=== PATIENT | female | born 1975 | race African-American/Black ===

== ENCOUNTER 2017-01-20 00:53 | Emergency (ER) | payer OTHER ==
--- NOTE | 2017-01-20 01:29 | PDOC ---
History of Present Illness - General History Source: Patient Exam Limitations: No Limitations - History of Present Illness Travel History: No Initial Comments: 01/20/17 02:25 41-year-old female without any medical problems presents to the emergency department complaining of right upper quadrant discomfort described as 4/10 dull nonradiating intermittent discomfort. Pain is exacerbated after eatting and no alleviating factors. She denies fever, chills, nausea/vomiting, chest pain, shortness of breath, flank pains, urinary symptoms. Timing/Duration: reports: intermittent Quality: reports: burning Abdominal Pain Onset Location: reports: RUQ, epigastric <Dougie Regan - Last Filed: 01/20/17 03:40> <María Frederick - Last Filed: 01/22/17 07:33> - General Chief Complaint: Chest Pain Stated Complaint: PAIN Time Seen by Provider: 01/20/17 01:05 Past History - Past Medical History Asthma: Yes HTN: Yes Psychiatric Problems: Yes (bipolar) - Immunization History Immunization Up to Date: Yes - Psycho/Social/Smoking Cessation Hx Anxiety: No Suicidal Ideation: No Smoking Status: No Smoking History: Never smoked Have you smoked in the past 12 months: No Number of Cigarettes Smoked Daily: 0 Information on smoking cessation initiated: No Hx Alcohol Use: No Drug/Substance Use Hx: No <Dougie Regan - Last Filed: 01/20/17 03:40> <María Frederick - Last Filed: 01/22/17 07:33> - Past Medical History Allergies/Adverse Reactions: Allergies Allergy/AdvReac Type Severity Reaction Status Date / Time latex Allergy Mild Hives Verified 01/20/17 01:07 nuts Allergy Severe Difficulty Uncoded 01/20/17 01:07 Breathing bananas Allergy Mild Itching Uncoded 01/20/17 01:07 Home Medications: Ambulatory Orders Aripiprazole [Abilify] 5 mg PO DAILY 01/20/17 Divalproex [Depakote -] 500 mg PO DAILY 01/20/17 Lisinopril 0 mg PO DAILY 01/20/17 Ritalin 15 mg PO DAILY 01/20/17 Review of Systems - Review of Systems Able to Perform ROS?: Yes Comments:: 01/20/17 02:27 CONSTITUTIONAL: Absent: fever, chills, diaphoresis, generalized weakness, malaise, loss of appetite HEENT: Absent: rhinorrhea, nasal congestion, throat pain, throat swelling, difficulty swallowing, mouth swelling, ear pain, eye pain, visual Changes CARDIOVASCULAR: Absent: chest pain, loss of consciousness, palpitations, irregular heart rate, peripheral edema RESPIRATORY: Absent: cough, shortness of breath, dyspnea with exertion, orthopnea, wheezing, stridor, hemoptysis GASTROINTESTINAL: +epigastric/RUQ pain Absent: abdominal distension, nausea, vomiting, diarrhea, constipation, melena , hematochezia GENITOURINARY: Absent: dysuria, frequency, urgency, hesitancy, hematuria, flank pain, genital pain MUSCULOSKELETAL: Absent: myalgia, arthralgia, joint swelling SKIN: Absent: rash, itching, pallor HEMATOLOGIC/IMMUNOLOGIC: Absent: easy bleeding, easy bruising, lymphadenopathy, frequent infections ENDOCRINE: Absent: unexplained weight gain, unexplained weight loss, heat intolerance, cold intolerance NEUROLOGIC: Absent: headache, focal weakness or paresthesias, dizziness, unsteady gait, seizure, mental status changes, bladder or bowel incontinence PSYCHIATRIC: Absent: anxiety, depression, suicidal or homicidal ideation, hallucinations. Is the patient limited Irish proficient: No <Brigido Reganui - Last Filed: 01/20/17 03:40> *Physical Exam - Vital Signs Last Vital Signs Temp Pulse Resp BP Pulse Ox 98.0 F 68 20 148/84 100 01/20/17 01:07 01/20/17 01:07 01/20/17 01:07 01/20/17 01:07 01/20/17 01:07 - Physical Exam Comments: 01/20/17 02:27 GENERAL: Well developed, well nourished. Awake and alert. No acute distress. HEENT: Normocephalic, atraumatic. PERRLA, EOMI. No conjunctival pallor. Sclera are non- icteric. Moist mucous membranes. Oropharynx is clear. NECK: Supple. Full ROM. No JVD. Carotid pulses 2+ and symmetric, without bruits. No thyromegaly. No lymphadenopathy. CARDIOVASCULAR: Regular rate and rhythm. No murmurs, rubs, or gallops. Distal pulses are 2+ and symmetric. PULMONARY: No evidence of respiratory distress. Lungs clear to auscultation bilaterally. No wheezing, rales or rhonchi. ABDOMINAL: Soft. Non-tender. Non-distended. No rebound or guarding. No organomegaly. Normoactive bowel sounds. MUSCULOSKELETAL Normal range of motion at all joints. No bony deformities or tenderness. No CVA tenderness. EXTREMITIES: No cyanosis. No clubbing. No edema. No calf tenderness. SKIN: Warm and dry. Normal capillary refill. No rashes. No jaundice. NEUROLOGICAL: Alert, awake, appropriate. Cranial nerves 2-12 intact. No deficits to light touch and temperature in face, upper extremities and lower extremities. No motor deficits in the in face, upper extremities and lower extremities. Normoreflexic in the upper and lower extremities. Normal speech. Toes are down- going bilaterally. Gait is normal without ataxia. PSYCHIATRIC: Cooperative. Good eye contact. Appropriate mood and affect. <Dougie Regan - Last Filed: 01/20/17 03:40> - Vital Signs Last Vital Signs Temp Pulse Resp BP Pulse Ox 98.0 F 68 20 148/84 100 01/20/17 01:07 01/20/17 01:07 01/20/17 01:07 01/20/17 01:07 01/20/17 01:07 <María Frederick - Last Filed: 01/22/17 07:33> ED Treatment Course - LABORATORY CBC & Chemistry Diagram: 01/20/17 02:25 01/20/17 02:25 - RADIOLOGY Radiograph Interpretation: 01/20/17 02:27 US Abd limited mild hepatomegaly. Gallbladder filled with stones but no secondary sign of cholecystitis <Dougie Regan - Last Filed: 01/20/17 03:40> - LABORATORY CBC & Chemistry Diagram: 01/20/17 02:25 01/20/17 02:25 - ADDITIONAL ORDERS Additional order review: 01/20/17 02:25 RBC 4.50 MCV 82.3 MCHC 33.2 RDW 19.8 H MPV 8.9 Neutrophils % 47.4 Lymphocytes % 41.0 H Monocytes % 7.4 Eosinophils % 3.1 Basophils % 1.1 <María Frederick - Last Filed: 01/22/17 07:33> *DC/Admit/Observation/Transfer - Discharge Dispostion Admit: No <Dougie Regan - Last Filed: 01/20/17 03:40> - Attestations Physician Attestion: I reviewed the case with the mid-level practitioner and agree with the mid- level practitioner's assessment, diagnosis and disposition. <María Frederick - Last Filed: 01/22/17 07:33> Diagnosis at time of Disposition: Cholelithiases Qualifiers: Cholelithiasis location: other site Biliary obstruction: without biliary obstruction Qualified Code(s): K80.80 - Other cholelithiasis without obstruction - Discharge Dispostion Disposition: HOME Condition at time of disposition: Stable - Referrals Referrals: Babs Clark MD [Primary Care Provider] - Merrill Espinoza DO [Staff Physician] - Venkat Sanabria MD [Staff Physician] - - Patient Instructions Printed Discharge Instructions: DI for Gallstones Additional Instructions: Follow-up with your physician, the general surgeon/Dr. Sanabria, aquaculture farmer/ Dr. Espinoza Return back to the emergency department for severe/persistent or worsening symptoms.
[2017-01-20 01:41] VITALS: BP 148/84; PULSE 68; TEMP 98; BMI 36.0
[2017-01-20 01:47] LABS: URINE APPEARANCE CLEAR; URINE BILIRUBIN NEGATIVE (NEGATIVE); URINE BLOOD NEGATIVE (NEGATIVE); URINE COLOR LTYELLOW; URINE GLUCOSE (UA) NEGATIVE (NEGATIVE); URINE KETONE NEGATIVE (NEGATIVE); URINE LEUK ESTERASE NEGATIVE (NEGATIVE); URINE NITRITE NEGATIVE (NEGATIVE); URINE PROTEIN NEGATIVE (NEGATIVE); URINE UROBILINOGEN NEGATIVE mg/dL (0.2-1.0)
[2017-01-20 02:37] LABS: BASOPHIL 1.1 % (0-2.0); EOSINOPHIL 3.1 % (0-4.5); MCH 27.3 pg (25.7-33.7); MCHC 33.2 g/dl (32.0-36.0); MEAN CELL VOLUME 82.3 fl (80-96); MEAN PLT VOLUME 8.9 fl (7.5-11.1); NEUTROPHILS 47.4 % (42.8-82.8); PLATELET COUNT 235 K/MM3 (134-434); RDW 19.8 % (11.6-15.6)
[2017-01-20 03:11] LABS: ALBUMIN 3.5 g/dl (3.4-5.0); ALK PHOS 75 U/L (45-117); AMYLASE 46 U/L (25-115); ANION GAP 7 (8-16); BILIRUBIN,TOTAL 0.4 mg/dL (0.2-1.0); CALCIUM 8.7 mg/dL (8.5-10.1); CO2 29 mmol/L (21-32); CREATININE 0.6 mg/dL (0.55-1.02); GLUCOSE,RANDOM 96 mg/dL (74-106); SGOT/AST 13 U/L (15-37); SGPT/ALT 13 U/L (12-78)
--- NOTE | 2017-01-22 16:47 | EKG ---
Test Reason : Blood Pressure : / mmHG Vent. Rate : 062 BPM Atrial Rate : 062 BPM P-R Int : 164 ms QRS Dur : 076 ms QT Int : 442 ms P-R-T Axes : 020 005 012 degrees QTc Int : 448 ms NORMAL SINUS RHYTHM MINIMAL VOLTAGE CRITERIA FOR LVH, MAY BE NORMAL VARIANT NONSPECIFIC T WAVE ABNORMALITY ABNORMAL ECG WHEN COMPARED WITH ECG OF 06-JAN-2016 01:31, T WAVE VARIATION Confirmed by JOO SKAGGS, GUS ([id number]) on 01/22/2017 4:47:31 PM Referred By: Confirmed By:GUS GE MD
== END 2017-01-20 04:21 | disposition home or self-care (01) ==
LOC: JER 00:53
DX: K80.20 Calculus of gallbladder without cholecystitis without obstruction (principal); I10 Essential (primary) hypertension; J45.909 Unspecified asthma, uncomplicated; F31.9 Bipolar disorder, unspecified
CPT/HCPCS: 36415; 76705-TC; 80053; 81003; 82150; 83690; 84703; 85025; 93005; 93010; 99284-25

== ENCOUNTER 2017-12-08 03:32 | Emergency (ER) | payer OTHER ==
[2017-12-08 03:46] VITALS: BMI 38.8
--- NOTE | 2017-12-08 05:32 | PDOC ---
History of Present Illness - General History Source: Patient Exam Limitations: No Limitations - History of Present Illness Initial Comments: 12/08/17 06:19 The patient is a 42 year old female, with a significant past medical history of asthma, PCOS,cholydocolithiasis, HTN, bipolar disorder, who presents to the emergency department with, right upper quadrant pain. As per patient, her symptoms onset at 9PM after eating Khmer buffet food. She reports associated burping, nausea without emesis, and diarrhea. She describes her pain as radiating to her back and up to her chest. She ranks it as a 6/10. She describes her symptoms to be similar to that of her gallstones. She reports she can be , her last menses was a month ago. She denies recent fevers, chills, headache or dizziness. She denies recent vomit or constipation. She denies recent dysuria, frequency, urgency or hematuria. She denies recent chest pain or shortness of breath. Allergies: Latex, nuts, banana Past surgical history: None reported. Social history: Nonsmoker. Denies EtOH use and recreational drug use. Primary Care Physician: Dr. Clark <Javier Peters - Last Filed: 12/08/17 06:19> <Zahra Manjarrez - Last Filed: 12/08/17 20:31> - General Chief Complaint: Chest Pain Stated Complaint: CHEST DISCOMFORT Time Seen by Provider: 12/08/17 04:16 Past History <Javier Peters - Last Filed: 12/08/17 06:19> - Past Medical History Anemia: No Asthma: Yes Cancer: No Cardiac Disorders: No CVA: No COPD: No DVT: No Dementia: No Diabetes: No Dialysis: No GI Disorders: No Disorders: No HTN: Yes Hypercholesterolemia: No Kidney Stones: No Liver Disease: No Psychiatric Problems: Yes (bipolar) Seizures: No Thyroid Disease: No Lung CA: No - Immunization History Immunization Up to Date: Yes - Suicide/Smoking/Psychosocial Hx Smoking Status: No Smoking History: Never smoked Have you smoked in the past 12 months: No Number of Cigarettes Smoked Daily: 0 Information on smoking cessation initiated: No Hx Alcohol Use: No Drug/Substance Use Hx: No Substance Use Type: None <Zahra Manjarrez - Last Filed: 12/08/17 20:31> - Past Medical History Allergies/Adverse Reactions: Allergies Allergy/AdvReac Type Severity Reaction Status Date / Time latex Allergy Mild Hives Verified 12/08/17 03:43 nuts Allergy Severe Difficulty Uncoded 12/08/17 03:43 Breathing bananas Allergy Mild Itching Uncoded 12/08/17 03:43 Home Medications: Ambulatory Orders Aripiprazole [Abilify] 20 mg PO DAILY 01/20/17 Dextroamphetamine/Amphetamine [Adderall Xr 20 mg Capsule] 20 mg PO DAILY Oxycodone HCl/Acetaminophen [Percocet 5-325 mg Tablet] 1 tab PO Q6H PRN #12 tablet MDD 4 12/08/17 Review of Systems - Review of Systems Able to Perform ROS?: Yes Comments:: 12/08/17 06:20 GENERAL/CONSTITUTIONAL: No fever or chills. No weakness. HEAD, EYES, EARS, NOSE AND THROAT: No change in vision. No ear pain or discharge. No sore throat. CARDIOVASCULAR: No chest pain or shortness of breath. RESPIRATORY: No cough, wheezing, or hemoptysis. GASTROINTESTINAL: Nausea. Diarrhea. Burping. RUQ pain. No vomiting or constipation. GENITOURINARY: No dysuria, frequency, or change in urination. MUSCULOSKELETAL: No joint or muscle swelling or pain. No neck or back pain. SKIN: No rash NEUROLOGIC: No headache, vertigo, loss of consciousness, or change in strength/ sensation. ENDOCRINE: No increased thirst. No abnormal weight change. HEMATOLOGIC/LYMPHATIC: No anemia, easy bleeding, or history of blood clots. ALLERGIC/IMMUNOLOGIC: No hives or skin allergy. All Other Systems: Reviewed and Negative <Javier Peters - Last Filed: 12/08/17 06:19> *Physical Exam - Vital Signs Last Vital Signs Temp Pulse Resp BP Pulse Ox 98.4 F 72 20 146/99 100 12/08/17 03:43 12/08/17 03:43 12/08/17 03:43 12/08/17 03:43 12/08/17 03:43 - Physical Exam Comments: 12/08/17 06:20 GENERAL: Awake, alert, and fully oriented, in no acute distress HEAD: No signs of trauma EYES: PERRLA, EOMI, sclera anicteric, conjunctiva clear ENT: Auricles normal inspection, hearing grossly normal, nares patent, oropharynx clear without exudates. Moist mucosa NECK: Normal ROM, supple, no lymphadenopathy, JVD, or masses LUNGS: Breath sounds equal, clear to auscultation bilaterally. No wheezes, and no crackles HEART: Regular rate and rhythm, normal S1 and S2, no murmurs, rubs or gallops +ABDOMEN: Minimal tenderness to the epigastric region. Soft, normoactive bowel sounds. No guarding, no rebound. No masses EXTREMITIES: Normal range of motion, no edema. No clubbing or cyanosis. No cords, erythema, or tenderness NEUROLOGICAL: Cranial nerves II through XII grossly intact. Normal speech, normal gait SKIN: Warm, Dry, normal turgor, no rashes or lesions noted. <Javier Peters - Last Filed: 12/08/17 06:19> - Vital Signs Last Vital Signs Temp Pulse Resp BP Pulse Ox 98.4 F 72 20 146/99 100 12/08/17 03:43 12/08/17 03:43 12/08/17 03:43 12/08/17 03:43 12/08/17 03:43 <Zahra Manjarrez - Last Filed: 12/08/17 20:31> Heart Score/ECG Review #1 12/08/17 06:20 EKG performed at: 08 December 2017 at 3:46:10 Vent Rate 68 bpm KS interval 166 ms QRS duration 88 ms QT/QTc 414/440 ms P-R-T axes 50 22 28 Normal sinus rhythm with sinus arrhythmia Normal ECG <Javier Peters - Last Filed: 12/08/17 06:19> ED Treatment Course - LABORATORY CBC & Chemistry Diagram: 12/08/17 05:51 12/08/17 05:51 - ADDITIONAL ORDERS Additional order review: 12/08/17 05:51 RBC 4.32 MCV 69.1 L MCHC 33.1 RDW 19.4 H MPV 8.2 Neutrophils % 47.5 Lymphocytes % 40.4 H Monocytes % 6.8 Eosinophils % 3.4 Basophils % 1.9 - Medications Given in the ED: ED Medications Discontinued Medications Generic Name Dose Route Start Last Admin Trade Name Freq PRN Reason Stop Dose Admin Al Hydroxide/Mg Hydroxide 30 ml 12/08/17 05:33 12/08/17 05:54 Mylanta Oral Suspension - PO 12/08/17 05:34 30 ml ONCE ONE Administration Ibuprofen 600 mg 12/08/17 05:33 12/08/17 05:54 Motrin - PO 12/08/17 05:34 600 mg ONCE ONE Administration <Javier Peters - Last Filed: 12/08/17 06:19> - LABORATORY CBC & Chemistry Diagram: 12/08/17 05:51 12/08/17 05:51 <Zahra Manjarrez - Last Filed: 12/08/17 20:31> Medical Decision Making - Medical Decision Making 12/08/17 07:21 Labs normal. Pt is anemic; pt awaiting GB sono. SHe will be signed out to the day team. On exam epig pain. <Zahra Manjarrez - Last Filed: 12/08/17 20:31> *DC/Admit/Observation/Transfer - Attestations Scribe Attestion: 12/08/17 06:21 Documentation prepared by Javier Peters, acting as medical leader for Zahra Manjarrez MD. <Javier Peters - Last Filed: 12/08/17 06:19> <Zahra Manjarrez - Last Filed: 12/08/17 20:31> Diagnosis at time of Disposition: Biliary colic - Discharge Dispostion Disposition: HOME Condition at time of disposition: Improved - Prescriptions Prescriptions: Oxycodone HCl/Acetaminophen [Percocet 5-325 mg Tablet] 1 tab PO Q6H PRN #12 tablet MDD 4 PRN Reason: Pain - Referrals Referrals: Babs Clark MD [Primary Care Provider] - Bassam Olmos MD [Staff Physician] - - Patient Instructions Printed Discharge Instructions: DI for Gallstones Additional Instructions: Please make an appointment with the general surgeon. Call to schedule an appointment. Take 600 mg ibuprofen every 6 hours as needed for pain. For additional relief, take a tablet of percocet every 6 hours as needed. Drink plenty of fluids and rest. If you have uncontrollable pain, please return to the ER for further evaluation. - Post Discharge Activity
[2017-12-08] MEDS ORDERED: MAG HYDROX/AL HYDROX/SIMETH 30 ML UNIT-DOSE CUP PO ONE (05:33)
[2017-12-08] MEDS ORDERED: IBUPROFEN 600 MG TABLET (FP) PO ONE ×2 (05:33→05:48)
[2017-12-08] MEDS ORDERED: MAG HYDROX/AL HYDROX/SIMETH 30 ML UNIT-DOSE CUP ONE (05:48)
[2017-12-08 06:03] LABS: BASO % 1.9 % (0-2.0); EOS % 3.4 % (0-4.5); HEMATOCRIT 29.8 % (32.4-45.2); HEMOGLOBIN 9.9 GM/dL (10.7-15.3); LYMPH % 40.4 % (8-40); MCH 22.9 pg (25.7-33.7); MCHC 33.1 g/dl (32.0-36.0); MEAN CELL VOLUME 69.1 fl (80-96); MEAN PLT VOLUME 8.2 fl (7.5-11.1); MONO % 6.8 % (3.8-10.2); NEUT % 47.5 % (42.8-82.8); PLATELET COUNT 254 K/MM3 (134-434); RBC 4.32 M/mm3 (3.60-5.2); RDW 19.4 % (11.6-15.6); WHITE BLOOD COUNT 6.3 K/mm3 (4.0-10.0)
[2017-12-08 06:37] LABS: ALBUMIN 3.4 g/dl (3.4-5.0); ANION GAP 7 (8-16); BLOOD UREA NITROGEN 9 mg/dL (7-18); CALCIUM 8.9 mg/dL (8.5-10.1); CHLORIDE 109 mmol/L (98-107); CO2 25 mmol/L (21-32); GLUCOSE,RANDOM 113 mg/dL (74-106); SODIUM 141 mmol/L (136-145)
[2017-12-08 06:44] LABS: ALK PHOS 82 U/L (45-117); BILIRUBIN,TOTAL 0.3 mg/dL (0.2-1.0); CREATININE 0.7 mg/dL (0.55-1.02); SGOT/AST 13 U/L (15-37); SGPT/ALT 14 U/L (12-78)
[2017-12-08 09:30] VITALS: BP 140/72; PULSE 18; TEMP 97.6
[2017-12-08 09:33] LABS: URINE APPEARANCE CLEAR; URINE BILIRUBIN NEGATIVE (<2.0 mg/dL); URINE COLOR STRAW; URINE GLUCOSE (UA) NEGATIVE (NEGATIVE); URINE KETONE TRACE (NEGATIVE); URINE LEUK ESTERASE NEGATIVE (NEGATIVE); URINE NITRITE NEGATIVE (NEGATIVE); URINE PROTEIN NEGATIVE (NEGATIVE); URINE UROBILINOGEN NEGATIVE mg/dL (0.2-1.0)
--- NOTE | 2017-12-08 10:35 | PDOC ---
*Physical Exam - Vital Signs Last Vital Signs Temp Pulse Resp BP Pulse Ox 97.6 F 18 L 16 140/72 98 12/08/17 09:27 12/08/17 09:27 12/08/17 09:27 12/08/17 09:27 12/08/17 09:27 ED Treatment Course - LABORATORY CBC & Chemistry Diagram: 12/08/17 05:51 12/08/17 05:51 - ADDITIONAL ORDERS Additional order review: Laboratory Results 12/08/17 12/08/17 12/08/17 08:18 08:18 05:51 Sodium Potassium Chloride Carbon Dioxide Anion Gap BUN Creatinine Creat Clearance w eGFR Random Glucose Calcium Total Bilirubin AST ALT Alkaline Phosphatase Total Protein Albumin Serum , Qual Negative Urine Color Straw Urine Appearance Clear Urine pH 6.0 Ur Specific [place] 1.009 Urine Protein Negative Urine Glucose (UA) Negative Urine Ketones Trace H Urine Blood Negative Urine Nitrite Negative Urine Bilirubin Negative Urine Urobilinogen Negative Ur Leukocyte Esterase Negative Urine HCG, Qual Negative 12/08/17 05:51 Sodium 141 Potassium 4.0 Chloride 109 H Carbon Dioxide 25 Anion Gap 7 L BUN 9 Creatinine 0.7 Creat Clearance w eGFR > 60 Random Glucose 113 H Calcium 8.9 Total Bilirubin 0.3 AST 13 L ALT 14 Alkaline Phosphatase 82 Total Protein 7.0 Albumin 3.4 Serum , Qual Urine Color Urine Appearance Urine pH Ur Specific [place] Urine Protein Urine Glucose (UA) Urine Ketones Urine Blood Urine Nitrite Urine Bilirubin Urine Urobilinogen Ur Leukocyte Esterase Urine HCG, Qual 12/08/17 05:51 RBC 4.32 MCV 69.1 L MCHC 33.1 RDW 19.4 H MPV 8.2 Neutrophils % 47.5 Lymphocytes % 40.4 H Monocytes % 6.8 Eosinophils % 3.4 Basophils % 1.9 - Medications Given in the ED: ED Medications Discontinued Medications Generic Name Dose Route Start Last Admin Trade Name Freq PRN Reason Stop Dose Admin Al Hydroxide/Mg Hydroxide 30 ml 12/08/17 05:33 12/08/17 05:54 Mylanta Oral Suspension - PO 12/08/17 05:34 30 ml ONCE ONE Administration Ibuprofen 600 mg 12/08/17 05:33 12/08/17 05:54 Motrin - PO 12/08/17 05:34 600 mg ONCE ONE Administration Medical Decision Making - Medical Decision Making 12/08/17 10:31 Vital Signs Temp Pulse Resp BP Pulse Ox 97.6 F 18 L 16 140/72 98 12/08/17 09:27 12/08/17 09:27 12/08/17 09:27 12/08/17 09:27 12/08/17 09:27 Pt reports feeling significantly better. Labs and ultrasound reviewed. No acute cholecystitis. I suspect that this was biliary colic. Will refer patient to a general surgeon for outpatient management. Return precautions given including worsening pain. *DC/Admit/Observation/Transfer Diagnosis at time of Disposition: Biliary colic - Discharge Dispostion Disposition: HOME Condition at time of disposition: Improved Decision to Admit order: No - Prescriptions Prescriptions: Oxycodone HCl/Acetaminophen [Percocet 5-325 mg Tablet] 1 tab PO Q6H PRN #12 tablet MDD 4 PRN Reason: Pain - Referrals Referrals: Babs Clark MD [Primary Care Provider] - Bassam Olmos MD [Staff Physician] - - Patient Instructions Printed Discharge Instructions: DI for Gallstones Additional Instructions: Please make an appointment with the general surgeon. Call to schedule an appointment. Take 600 mg ibuprofen every 6 hours as needed for pain. For additional relief, take a tablet of percocet every 6 hours as needed. Drink plenty of fluids and rest. If you have uncontrollable pain, please return to the ER for further evaluation. - Post Discharge Activity
--- NOTE | 2017-12-11 16:28 | EKG ---
Test Reason : Blood Pressure : / mmHG Vent. Rate : 068 BPM Atrial Rate : 068 BPM P-R Int : 166 ms QRS Dur : 088 ms QT Int : 414 ms P-R-T Axes : 050 022 028 degrees QTc Int : 440 ms NORMAL SINUS RHYTHM WITH SINUS ARRHYTHMIA NORMAL ECG WHEN COMPARED WITH ECG OF 20-JAN-2017 01:06, NO SIGNIFICANT CHANGE WAS FOUND Confirmed by García Hamlin MD ([id number]) on 12/11/2017 4:27:57 PM Referred By: Confirmed By:García Hamlin MD
== END 2017-12-08 10:41 | disposition home or self-care (01) ==
LOC: JER 03:32
DX: K80.50 Calculus of bile duct without cholangitis or cholecystitis without obstruction (principal)
CPT/HCPCS: 36415; 76705-TC; 80053; 81003; 84703; 85025; 93005; 93010; 99284-25

== ENCOUNTER 2018-11-07 03:09 | Emergency (ER) | payer OTHER ==
[2018-11-07 03:41] VITALS: BMI 40.7
--- NOTE | 2018-11-07 04:29 | PDOC ---
Attending Attestation - Resident Resident Name: AddisMary - ED Attending Attestation I have performed the following: I have examined & evaluated the patient, The case was reviewed & discussed with the resident, I agree w/resident's findings & plan - HPI HPI: 11/07/18 06:06 43 yo female with upper abd pain and history of biliary disease - Physicial Exam PE: 11/07/18 06:09 GENERAL: Awake, in no acute distress HEAD: No signs of trauma EYES: ENT:clear without exudates. Moist mucosa NECK: Normal ROM, LUNGS:. Normal work of breathing. HEART: Regular rate and rhythm, ABDOMEN: Soft, nondistended ,tenderness ruq and epigastric region NEUROLOGICAL: Alert, SKIN: Warm, Dry - Medical Decision Making 11/07/18 06:10 43-year-old female with epigastric and right upper quadrant pain Due to patient's history of biliary disease a formal right upper quadrant ultrasound has been ordered Labs pending Case signed out to oncoming shift
[2018-11-07 05:02] LABS: BASO % 2.6 % (0-2.0); EOS % 3.8 % (0-4.5); HEMATOCRIT 30.8 % (32.4-45.2); LYMPH % 38.4 % (8-40); MCH 23.7 pg (25.7-33.7); MCHC 32.5 g/dl (32.0-36.0); MEAN CELL VOLUME 72.7 fl (80-96); MEAN PLT VOLUME 8.9 fl (7.5-11.1); MONO % 7.5 % (3.8-10.2); NEUT % 47.7 % (42.8-82.8); PLATELET COUNT 289 K/MM3 (134-434); RBC 4.24 M/mm3 (3.60-5.2); RDW 17.4 % (11.6-15.6); WHITE BLOOD COUNT 5.2 K/mm3 (4.0-10.0)
[2018-11-07 05:05] LABS: INR 1.05 (0.83-1.09); PROTHROMBIN TIME (PATIENT) 12.4 SEC (9.7-13.0)
[2018-11-07 05:18] LABS: ALBUMIN 3.3 g/dl (3.4-5.0); ALK PHOS 83 U/L (45-117); ANION GAP 7 MMOL/L (8-16); BILIRUBIN,TOTAL 0.4 mg/dL (0.2-1); BLOOD UREA NITROGEN 7.6 mg/dL (7-18); CALCIUM 8.5 mg/dL (8.5-10.1); CHLORIDE 106 mmol/L (98-107); CO2 26 mmol/L (21-32); CREATININE 0.8 mg/dL (0.55-1.3); GLUCOSE,RANDOM 115 mg/dL (74-106); POTASSIUM 3.6 mmol/L (3.5-5.1); SGOT/AST 17 U/L (15-37); SGPT/ALT 19 U/L (13-61); SODIUM 140 mmol/L (136-145); TOT PROT 6.9 g/dl (6.4-8.2)
[2018-11-07] MEDS ORDERED: ACETAMINOPHEN 1000 MG/100 ML VIAL (NON FORMULARY) IVPB ONE (06:04)
[2018-11-07] MEDS ORDERED: FAMOTIDINE 20 MG/50 ML IVPB 20 MG/50 ML MG IVPB ONE ×2 (06:04→06:21)
[2018-11-07] MEDS ORDERED: ACETAMINOPHEN INJECTION 100 ML IVPB ONE (06:21)
--- NOTE | 2018-11-07 09:41 | PDOC ---
*Physical Exam - Vital Signs Last Vital Signs Temp Pulse Resp BP Pulse Ox 98.3 F 61 20 146/84 99 11/07/18 03:33 11/07/18 03:33 11/07/18 03:33 11/07/18 03:33 11/07/18 03:33 ED Treatment Course - LABORATORY CBC & Chemistry Diagram: 11/07/18 04:39 11/07/18 04:39 - ADDITIONAL ORDERS Additional order review: Laboratory Results 11/07/18 11/07/18 11/07/18 04:45 04:39 04:39 PT with INR INR Sodium 140 Potassium 3.6 Chloride 106 Carbon Dioxide 26 Anion Gap 7 L BUN 7.6 Creatinine 0.8 Est GFR (CKD-EPI)AfAm 105.39 Est GFR (CKD-EPI)NonAf 90.93 Random Glucose 115 H Calcium 8.5 Total Bilirubin 0.4 AST 17 ALT 19 Alkaline Phosphatase 83 Creatine Kinase 81 Troponin I < 0.02 Total Protein 6.9 Albumin 3.3 L Lipase 171 Serum , Qual Negative 11/07/18 04:39 PT with INR 12.40 INR 1.05 Sodium Potassium Chloride Carbon Dioxide Anion Gap BUN Creatinine Est GFR (CKD-EPI)AfAm Est GFR (CKD-EPI)NonAf Random Glucose Calcium Total Bilirubin AST ALT Alkaline Phosphatase Creatine Kinase Troponin I Total Protein Albumin Lipase Serum , Qual 11/07/18 04:39 RBC 4.24 MCV 72.7 L MCHC 32.5 RDW 17.4 H MPV 8.9 Neutrophils % 47.7 Lymphocytes % 38.4 Monocytes % 7.5 Eosinophils % 3.8 Basophils % 2.6 H - Medications Given in the ED: ED Medications Discontinued Medications Generic Name Dose Route Start Last Admin Trade Name Sivakumarq PRN Reason Stop Dose Admin Acetaminophen 1,000 mg 11/07/18 06:04 11/07/18 06:26 Ofirmev Injection - IVPB 11/07/18 06:05 1,000 mg ONCE ONE Administration Famotidine/Sodium Chloride 20 mg in 50 mls @ 100 mls/hr 11/07/18 06:04 06:26 Pepcid 20 Mg Premixed Ivpb - IVPB 11/07/18 06:33 100 mls/hr ONCE ONE Administration Medical Decision Making - Medical Decision Making 11/07/18 10:39 Pt reassessed. She states her pain has resolved. She previously followed up with a surgeon who said she did not need to have her gallbladder removed. She requests a second opinion. Will set her up for f/u with Dr. Kemp. *DC/Admit/Observation/Transfer Diagnosis at time of Disposition: Biliary colic - Discharge Dispostion Disposition: HOME Condition at time of disposition: Stable Decision to Admit order: No - Referrals - Patient Instructions - Post Discharge Activity
[2018-11-07 11:07] VITALS: BP 163/78; PULSE 67; TEMP 97.8
--- NOTE | 2018-11-07 16:55 | EKG ---
Test Reason : Blood Pressure : / mmHG Vent. Rate : 062 BPM Atrial Rate : 062 BPM P-R Int : 164 ms QRS Dur : 084 ms QT Int : 450 ms P-R-T Axes : 023 -06 000 degrees QTc Int : 456 ms NORMAL SINUS RHYTHM WITH SINUS ARRHYTHMIA VOLTAGE CRITERIA FOR LEFT VENTRICULAR HYPERTROPHY ABNORMAL ECG WHEN COMPARED WITH ECG OF 08-DEC-2017 03:46, NO SIGNIFICANT CHANGE WAS FOUND Confirmed by MIREYA JACOBS MD ([id number]) on 11/07/2018 4:55:10 PM Referred By: Confirmed By:MIREYA JACOBS MD
--- NOTE | 2018-11-10 17:01 | PDOC ---
History of Present Illness - General Chief Complaint: Chest Pain Stated Complaint: CHEST PAIN Time Seen by Provider: 11/07/18 04:23 History Source: Patient Exam Limitations: No Limitations - History of Present Illness Initial Comments: Pt is a 43 yo F, with PMH of asthma, choledocholithiasis, PCOS, HTN, and bipolar disorder, who is presenting via EMS with complaints of L-sided chest pain which woke her from sleep about an hour prior to presentation. Pt states the pain is sharp and radiates towards her left shoulder, and is associated with sweating and nausea. The pain is exacerbated by sitting up, and pt did not take any analgesics or PPI prior to presentations. Pt ate steak about 7pm which often ppts her symptoms. Pt states she has had similar pain in the past 2/2 to stones in her gallbladder. She has seen a surgeon outpatient, but they did not take out her GB at that time, despite the presence of multiple gallstones seen on US. Pt denies any fevers/chills, headache, vision changes, syncope, palpitations, SOB, vomiting, abdominal pain, urinary symptoms, diarrhea/ constipation, or leg swelling. Allergies: sulfa (vomiting) PCP: Dr. Babs Clark Social: Pt denies any cigarette, alcohol, or drug use. Pt denies any recent travel or sick contacts. Surgical: fibroid removal Family: no relevant history. 11/10/18 17:04 Past History - Travel Traveled outside of the country in the last 30 days: No Close contact w/someone who was outside of country & ill: No - Past Medical History Allergies/Adverse Reactions: Allergies Allergy/AdvReac Type Severity Reaction Status Date / Time Sulfa (Sulfonamide Allergy Severe Vomiting Verified 11/07/18 03:52 Antibiotics) latex Allergy Mild Hives Verified 11/07/18 03:51 nuts Allergy Severe Difficulty Uncoded 11/07/18 03:51 Breathing bananas Allergy Mild Itching Uncoded 11/07/18 03:51 Home Medications: Ambulatory Orders Aripiprazole [Abilify] 15 mg PO DAILY 01/20/17 Dextroamphetamine/Amphetamine [Adderall Xr 20 mg Capsule] 25 mg PO DAILY Lamotrigine [Lamictal] 50 mg PO DAILY 11/07/18 Anemia: No Asthma: Yes Cancer: No Cardiac Disorders: No CVA: No COPD: No DVT: No Dementia: No Diabetes: No Dialysis: No GI Disorders: No Disorders: No HTN: Yes Hypercholesterolemia: No Kidney Stones: No Liver Disease: No Psychiatric Problems: Yes (bipolar) Seizures: No Thyroid Disease: No Lung CA: No - Immunization History Immunization Up to Date: Yes - Suicide/Smoking/Psychosocial Hx Smoking Status: No Smoking History: Never smoked Have you smoked in the past 12 months: No Number of Cigarettes Smoked Daily: 0 Information on smoking cessation initiated: No Hx Alcohol Use: No Drug/Substance Use Hx: No Substance Use Type: None Review of Systems - Review of Systems Able to Perform ROS?: Yes Is the patient limited Spanish proficient: No Constitutional: No: Chills, Diaphoresis, Fever, Loss of Appetite, Malaise, Weakness HEENTM: No: Blurred Vision, Recent change in vision, Nose Congestion, Throat Swelling Respiratory: No: Cough, Orthopnea, Shortness of Breath Cardiac (ROS): Yes: Chest Pain. No: Edema, Irregular Heart Rate, Lightheadedness, Palpitations, Syncope, Chest Tightness ABD/GI: Yes: Nausea. No: Abdominal Distended, Constipated, Diarrhea, Difficulty Swallowing, Poor Appetite, Poor Fluid Intake, Vomiting, Indigestion, Abdominal cramping : No: Burning, Dysuria, Frequency, Pain Musculoskeletal: No: Back Pain, Joint Pain Integumentary: No: Rash Neurological: No: Headache, Weakness, Unsteady Gait, Dizziness Psychiatric: No: Sleep Pattern Change Endocrine: No: Increased Urine, Change in Weight Hematologic/Lymphatic: No: Anemia, Blood Clots, Easy Bleeding, Easy Bruising All Other Systems: Reviewed and Negative *Physical Exam - Vital Signs Last Vital Signs Temp Pulse Resp BP Pulse Ox 97.8 F 67 16 163/78 100 11/07/18 11:05 11/07/18 11:05 11/07/18 11:05 11/07/18 11:05 11/07/18 11:05 - Physical Exam Comments: Vitals stable, pt afebrile. Pt in NAD, obese body habitus. Pt alert and oriented x3. news librarian generally intact, muscular strength and sensation intact. No midline spinal tenderness, step-offs, or crepitus. Head normocephalic, atraumatic. Eyes PERRLA, EOMI. Oropharynx without erythema or exudates, no LAD b/l. No nasal congestion, hearing intact. Clear heart sounds, S1/S2, no JVD, or heart murmur. Mild non-pitting pedal edema b/l. Clear lung sounds, no respiratory distress, wheezes, crackles, or accessory muscle use. No reproducible chest wall tenderness. No abdominal or CVA tenderness to palpation, no rebound, no guarding. Abdomen soft, protuberant, and with normoactive bowel sounds. Skin without jaundice or rash. 11/10/18 16:53 ED Treatment Course - LABORATORY CBC & Chemistry Diagram: 11/07/18 04:39 11/07/18 04:39 - ADDITIONAL ORDERS Additional order review: 11/07/18 04:39 RBC 4.24 MCV 72.7 L MCHC 32.5 RDW 17.4 H MPV 8.9 Neutrophils % 47.7 Lymphocytes % 38.4 Monocytes % 7.5 Eosinophils % 3.8 Basophils % 2.6 H - RADIOLOGY Radiology Studies Ordered: Category Date Time Status CHEST PA & LAT [RAD] Stat Radiology 11/07/18 04:23 Completed - Medications Given in the ED: ED Medications Discontinued Medications Generic Name Dose Route Start Last Admin Trade Name Freq PRN Reason Stop Dose Admin Acetaminophen 1,000 mg 11/07/18 06:04 11/07/18 06:26 Ofirmev Injection - IVPB 11/07/18 06:05 1,000 mg ONCE ONE Administration Famotidine/Sodium Chloride 20 mg in 50 mls @ 100 mls/hr 11/07/18 06:04 06:26 Pepcid 20 Mg Premixed Ivpb - IVPB 11/07/18 06:33 100 mls/hr ONCE ONE Administration Medical Decision Making - Medical Decision Making Pt was seen at bedside, also will be seen by attending Dr. Vidal. Pt presenting via EMS with complaints of L-sided chest pain which woke her from sleep about an hour prior to presentation. Pt states the pain is sharp and radiates towards her left shoulder, and is associated with sweating and nausea. The pain is exacerbated by sitting up, and pt did not take any analgesics or PPI prior to presentations. Pt ate steak about 7pm which often ppts her symptoms. Pt states she has had similar pain in the past 2/2 to stones in her gallbladder. She has seen a surgeon outpatient, but they did not take out her GB at that time, despite the presence of multiple gallstones seen on US. Pt denies any fevers/chills, headache, vision changes, syncope, palpitations, SOB, vomiting, abdominal pain, urinary symptoms, diarrhea/constipation, or leg swelling. Considering ACS/angina/atypical chest pain vs indigestion/reflux vs cholecystitis/choledocholithiasis vs pancreatitis vs gastritis/ulcers. Ordered work-up including CBC, CMP, lipase, cardiac profile, ECG, chest x-ray. Provided 20 mg IV pepcid and 1 g IV tylenol for improvement of discomfort. Will continue to reassess pt and monitor for symptomatic improvement. ECG: NSR, intervals WNL (HR 62, WA 164, QRS 84, QTC 456). TWIs in III and avF, with no significant ST segment changes. No prior ECG for comparison. CBC and CMP WNL. Pt pending chest x-ray and abdominal RUQ US. Pt signed out to day team. 11/10/18 16:56 *DC/Admit/Observation/Transfer Diagnosis at time of Disposition: Biliary colic - Referrals Referrals: Andi Kemp MD [Staff Physician] - Babs Clark MD [Non Staff, Medical] - - Patient Instructions Printed Discharge Instructions: DI for Biliary Colic - Post Discharge Activity
== END 2018-11-07 11:07 ==
LOC: JER 03:09
PROC: 3E033GC Introduction of Other Therapeutic Substance into Peripheral Vein, Percutaneous Approach (ICD-10-PCS; principal; 2018-11-07)
PROC: 3E033NZ Introduction of Analgesics, Hypnotics, Sedatives into Peripheral Vein, Percutaneous Approach (ICD-10-PCS; 2018-11-07)
DX: K80.50 Calculus of bile duct without cholangitis or cholecystitis without obstruction (principal)
CPT/HCPCS: 36415; 71046-TC-FY; 76705-TC; 80053; 82550; 83690; 84484; 84703; 85025; 85610; 93005; 93010; 99284-25; J0131

== ENCOUNTER 2019-05-14 11:37 | Inpatient (IN) | payer OTHER ==
[2019-05-14] MEDS ORDERED: SODIUM CHLORIDE 3,402 ML IV ONE (11:57)
[2019-05-14] MEDS ORDERED: ACETAMINOPHEN 1000 MG/100 ML VIAL (NON FORMULARY) IVPB ONE (12:17)
[2019-05-14] MEDS ORDERED: ACETAMINOPHEN INJECTION 100 ML IVPB ONE (12:52)
[2019-05-14 13:00] LABS: BASO % 0.5 % (0-2.0); HEMATOCRIT 31.3 % (32.4-45.2); HEMOGLOBIN 10.1 GM/dL (10.7-15.3); LYMPH % 5.1 % (8-40); MCH 23.4 pg (25.7-33.7); MCHC 32.4 g/dl (32.0-36.0); MEAN CELL VOLUME 72.3 fl (80-96); MEAN PLT VOLUME 8.8 fl (7.5-11.1); MONO % 6.6 % (3.8-10.2); NEUT % 87.8 % (42.8-82.8); PLATELET COUNT 277 K/MM3 (134-434); RBC 4.33 M/mm3 (3.60-5.2); RDW 17.1 % (11.6-15.6); WHITE BLOOD COUNT 17.6 K/mm3 (4.0-10.0)
[2019-05-14 13:10] LABS: INR 1.3 (0.83-1.09); PROTHROMBIN TIME (PATIENT) 15.4 SEC (9.7-13.0)
[2019-05-14 13:13] LABS: ACTIVATED PTT 27.2 SECONDS (25.2-36.5)
[2019-05-14 13:16] LABS: EPI CELLS 7.1 /HPF (0-5/HPF); HYALINE CASTS 21 /lpf (0-8); PH,URINE 5.5 (5.0-8.0); URINE APPEARANCE TURBID; URINE BACTERIA 92.1 /hpf (NEGATIVE); URINE BILIRUBIN 2+ (NEGATIVE); URINE COLOR ORANGE; URINE GLUCOSE (UA) NEGATIVE (NEGATIVE); URINE KETONE 2+ (NEGATIVE); URINE LEUK ESTERASE 3+ (NEGATIVE); URINE NITRITE POSITIVE (NEGATIVE); URINE PROTEIN 3+ (NEGATIVE); URINE WBC 3001 /hpf (0-5)
[2019-05-14 13:42] LABS: ALBUMIN 3.3 g/dl (3.4-5.0); ALK PHOS 84 U/L (45-117); ANION GAP 9 MMOL/L (8-16); BILIRUBIN,TOTAL 1.5 mg/dL (0.2-1); BLOOD UREA NITROGEN 11.4 mg/dL (7-18); CALCIUM 8.4 mg/dL (8.5-10.1); CHLORIDE 98 mmol/L (98-107); CO2 26 mmol/L (21-32); CREATININE 1.5 mg/dL (0.55-1.3); GLUCOSE,RANDOM 127 mg/dL (74-106); POTASSIUM 3.4 mmol/L (3.5-5.1); SGOT/AST 29 U/L (15-37); SGPT/ALT 21 U/L (13-61); SODIUM 132 mmol/L (136-145); TOT PROT 7.2 g/dl (6.4-8.2)
[2019-05-14 13:58] LABS: URINE RBC 55.7 /hpf (0-4)
[2019-05-14] MEDS ORDERED: CEFTRIAXONE 1 GM in DEXTROSE 5%-WATER - 50 ML IVPB ONE (14:06)
--- NOTE | 2019-05-14 14:09 | PDOC ---
Documentation entered by Daniela Guerrero SCRIBE, acting as scribe for Susan Noyola MD. Susan Noyola MD: This documentation has been prepared by the Cesar ohara Xhesika, SCRIBE, under my direction and personally reviewed by me in its entirety. I confirm that the documentation accurately reflects all work, treatment, procedures, and medical decision making performed by me. History of Present Illness - General Chief Complaint: Pain Stated Complaint: KIDENY INFECTION Time Seen by Provider: 05/14/19 11:54 History Source: Patient Exam Limitations: No Limitations - History of Present Illness Initial Comments: 05/14/19 12:38 The patient is a 44 year old female with a significant PMH of kidney infections , asthma, choledocholithiasis, PCOS, HTN, and bipolar disorder who presents to the emergency department for fever of 103.2 at home and R CVA pain. Pt states on Sunday05/10/2019 she developed suprapubic pain and frequency. On Sunday (05/11/2019) patient went to urgent care for R flank pain, was prescribed macrobid, however, symptoms worsened. Pt states after taking her first dose of macrobid she felt nauseous, endorsing diarrhea and 1 episode of nbnb emesis, which have since resolved. Pt states she has been drinking fluids and had jello yesterday. Pt denies taking any pain medications. LMP was before pedro. The patient denies chest pain, shortness of breath, headache and dizziness. Denies chills, cough, nausea, vomiting, diarrhea and constipation. Denies dysuria, frequency, urgency and hematuria. Allergies: sulfa (vomiting) Past surgical history: occasional alcohol use. PCP: Dr. Babs Clark Past History - Past Medical History Allergies/Adverse Reactions: Allergies Allergy/AdvReac Type Severity Reaction Status Date / Time Sulfa (Sulfonamide Allergy Severe Vomiting Verified 11/07/18 03:52 Antibiotics) latex Allergy Mild Hives Verified 11/07/18 03:51 nuts Allergy Severe Difficulty Uncoded 11/07/18 03:51 Breathing bananas Allergy Mild Itching Uncoded 11/07/18 03:51 Home Medications: Ambulatory Orders Aripiprazole [Abilify] 15 mg PO HS 01/20/17 Dextroamphetamine/Amphetamine [Adderall Xr 20 mg Capsule] 30 mg PO DAILY Lamotrigine [Lamictal] 100 mg PO HS 11/07/18 Lisinopril/Hydrochlorothiazide [Lisinopril-Hctz 20-12.5 mg Tab] 1 each PO DAILY 05/15/19 Tranexamic Acid 650 mg PO PRN 05/15/19 Anemia: No Asthma: Yes Cancer: No Cardiac Disorders: No CVA: No COPD: No DVT: No Dementia: No Diabetes: No Dialysis: No GI Disorders: No Disorders: No HTN: Yes Hypercholesterolemia: No Kidney Stones: No Liver Disease: No Psychiatric Problems: Yes (bipolar) Seizures: No Thyroid Disease: No Lung CA: No - Immunization History Immunization Up to Date: Yes - Psycho Social/Smoking Cessation Hx Smoking Status: No Smoking History: Never smoked Have you smoked in the past 12 months: No Number of Cigarettes Smoked Daily: 0 Hx Alcohol Use: No Drug/Substance Use Hx: No Substance Use Type: None Review of Systems - Review of Systems Able to Perform ROS?: Yes Comments:: 05/14/19 12:39 ENERAL/CONSTITUTIONAL: +fever. No chills. No weakness. HEAD, EYES, EARS, NOSE AND THROAT: No change in vision. No ear pain or discharge. No sore throat. CARDIOVASCULAR: No chest pain or shortness of breath. RESPIRATORY: No cough, wheezing, or hemoptysis. GASTROINTESTINAL: No nausea, vomiting, diarrhea or constipation. GENITOURINARY: No dysuria, frequency, or change in urination. MUSCULOSKELETAL: + R CVA pain. No joint or muscle swelling or pain. No neck or back pain. SKIN: No rash NEUROLOGIC: No headache, vertigo, loss of consciousness, or change in strength/ sensation. ENDOCRINE: No increased thirst. No abnormal weight change. HEMATOLOGIC/LYMPHATIC: No anemia, easy bleeding, or history of blood clots. ALLERGIC/IMMUNOLOGIC: No hives or skin allergy. *Physical Exam - Vital Signs Last Vital Signs Temp Pulse Resp BP Pulse Ox 101.9 F H 134 H 18 161/89 9 L 05/14/19 11:44 05/14/19 11:44 05/14/19 11:44 05/14/19 11:44 05/14/19 11:44 - Physical Exam 05/14/19 12:39 GENERAL: The patient is in no acute distress. +febrile HEAD: Normal with no signs of trauma. EYES: PERRLA, EOMI, sclera anicteric, conjunctiva clear. ENT: Ears normal, nares patent, oropharynx clear without exudates. +dry mucous membranes. NECK: Normal range of motion, supple without lymphadenopathy, JVD, or masses. LUNGS: Breath sounds equal, clear to auscultation bilaterally. No wheezes, and no crackles. HEART:+tachy, normal S1 and S2 without murmur, rub or gallop. ABDOMEN: +suprapubic tenderness. +R sided abdominal tenderness. Soft, normoactive bowel sounds. No guarding, no rebound. No masses palpable. EXTREMITIES: Normal range of motion, no edema. No clubbing or cyanosis. No erythema, or tenderness. NEUROLOGICAL: Cranial nerves II through XII grossly intact. Normal speech. No focal neurological deficits. MUSCULOSKELETAL: Back non-tender to palpation. +R CVA tenderness SKIN: Warm, Dry, normal turgor, no rashes or lesions noted. ED Treatment Course - LABORATORY CBC & Chemistry Diagram: 05/16/19 06:55 05/16/19 06:55 - ADDITIONAL ORDERS Additional order review: Laboratory Results 05/14/19 05/14/19 05/14/19 12:30 12:30 12:30 PT with INR INR PTT (Actin FS) Sodium Potassium Chloride Carbon Dioxide Anion Gap BUN Creatinine Est GFR (CKD-EPI)AfAm Est GFR (CKD-EPI)NonAf Random Glucose Lactic Acid 1.4 Calcium Total Bilirubin AST ALT Alkaline Phosphatase Troponin I Total Protein Albumin Serum , Qual Negative Urine Color Nicholas Urine Appearance Turbid Urine pH 5.5 Ur Specific Gilbert 1.023 Urine Protein 3+ H Urine Glucose (UA) Negative Urine Ketones 2+ H Urine Blood 2+ H Urine Nitrite Positive H Urine Bilirubin 2+ H Urine Urobilinogen 1.0 Ur Leukocyte Esterase 3+ H Urine WBC (Auto) 3001 Urine RBC (Auto) 55.7 Urine Casts (Auto) 21 U Pathogenic Cast Auto None U Epithel Cells (Auto) 7.1 Urine Bacteria (Auto) 92.1 05/14/19 05/14/19 12:30 12:30 PT with INR 15.40 H INR 1.30 H PTT (Actin FS) 27.2 Sodium 132 L Potassium 3.4 L Chloride 98 Carbon Dioxide 26 Anion Gap 9 BUN 11.4 Creatinine 1.5 H Est GFR (CKD-EPI)AfAm 48.94 Est GFR (CKD-EPI)NonAf 42.23 Random Glucose 127 H Lactic Acid Calcium 8.4 L Total Bilirubin 1.5 H AST 29 ALT 21 Alkaline Phosphatase 84 Troponin I < 0.02 Total Protein 7.2 Albumin 3.3 L Serum , Qual Urine Color Urine Appearance Urine pH Ur Specific Gilbert Urine Protein Urine Glucose (UA) Urine Ketones Urine Blood Urine Nitrite Urine Bilirubin Urine Urobilinogen Ur Leukocyte Esterase Urine WBC (Auto) Urine RBC (Auto) Urine Casts (Auto) U Pathogenic Cast Auto U Epithel Cells (Auto) Urine Bacteria (Auto) 05/14/19 12:30 RBC 4.33 MCV 72.3 L MCHC 32.4 RDW 17.1 H MPV 8.8 Neutrophils % 87.8 H D Lymphocytes % 5.1 L D Monocytes % 6.6 Eosinophils % 0.0 D Basophils % 0.5 - RADIOLOGY Radiology Studies Ordered: Category Date Time Status ABDOMEN & PELVIS CT W/O CONTR [CT] Stat CT Scan 05/14/19 14:06 Ordered CHEST X-RAY PORTABLE* [RAD] Stat Radiology 05/14/19 11:57 Completed - Medications Given in the ED: ED Medications Discontinued Medications Generic Name Dose Route Start Last Admin Trade Name Freq PRN Reason Stop Dose Admin Acetaminophen 1,000 mg 05/14/19 12:17 05/14/19 12:45 Ofirmev Injection - IVPB 05/14/19 12:18 1,000 mg ONCE ONE Administration Sodium Chloride 3,402 mls @ 1,701 mls/hr 05/14/19 11:57 05/14/19 12:45 Normal Saline - 30 ml/kg infuse over 2 hr (3402 ml) 05/14/19 13:56 1,701 mls/hr IV Administration ONCE ONE Medical Decision Making - Medical Decision Making 05/14/19 14:07 44-year-old female presenting to the emergency department secondary to fevers, right flank pain. Patient recently treated for UTI with Macrobid. No improvement. No hematuria Clinical presentation: Pyelonephritis, UTI, kidney stone We will do: Lab UA Blood culture Spiral CT Antibiotics IV fluids Reassess Laboratory Tests 05/14/19 05/14/19 05/14/19 12:30 12:30 12:30 WBC 17.6 H Hgb 10.1 L Hct 31.3 L Plt Count 277 Neutrophils % 87.8 H D INR 1.30 H BUN 11.4 Creatinine 1.5 H Alkaline Phosphatase 84 Troponin I < 0.02 Urine Blood Urine Nitrite Ur Leukocyte Esterase Urine WBC (Auto) Urine RBC (Auto) Influenza A (Rapid) Influenza B (Rapid) 05/14/19 05/14/19 12:30 12:30 WBC Hgb Hct Plt Count Neutrophils % INR BUN Creatinine Alkaline Phosphatase Troponin I Urine Blood 2+ H Urine Nitrite Positive H Ur Leukocyte Esterase 3+ H Urine WBC (Auto) 3001 Urine RBC (Auto) 55.7 Influenza A (Rapid) Negative Influenza B (Rapid) Negative Ceftriaxone ordered IVF ordered 05/14/19 14:07 Patient lost IV access We will attempt ultrasound-guided IV CT demonstrates right sided hydronephrosis, no stone seen consistent with pyelonephritis vs. recently passed stone Call placed to Dr. Cleveland Lord Will admit to hospitalist service Pt vitals repeated Pt febrile motrin ordered IVF ordered Clinical impression: Pyelonephritis, initial presentation Discharge - Discharge Information Problems reviewed: Yes Clinical Impression/Diagnosis: Pyelonephritis Condition: Stable - Admission Yes - Follow up/Referral - Patient Discharge Instructions - Post Discharge Activity
[2019-05-14] MEDS ORDERED: CEFTRIAXONE 1 GM/50 ML BAG ONE (14:49)
--- NOTE | 2019-05-14 15:58 | EKG ---
Test Reason : Blood Pressure : / mmHG Vent. Rate : 125 BPM Atrial Rate : 125 BPM P-R Int : 150 ms QRS Dur : 076 ms QT Int : 312 ms P-R-T Axes : 037 015 005 degrees QTc Int : 450 ms SINUS TACHYCARDIA MINIMAL VOLTAGE CRITERIA FOR LVH, MAY BE NORMAL VARIANT NONSPECIFIC T WAVE ABNORMALITY ABNORMAL ECG WHEN COMPARED WITH ECG OF 07-NOV-2018 03:29, VENT. RATE HAS INCREASED BY 63 BPM NON-SPECIFIC CHANGE IN ST SEGMENT IN ANTEROLATERAL LEADS Confirmed by MIRTHA SKAGGS, ALVARO ([id number]) on 05/14/2019 3:57:55 PM Referred By: Confirmed By:ALVARO SHANNON MD
[2019-05-14] MEDS ORDERED: morphine CARPU-JECT 4 MG/1 ML DISP.SYRIN IVPUSH ONE (16:48)
[2019-05-14] MEDS ORDERED: ONDANSETRON 4 MG/2 ML VIAL IVPUSH ONE (16:48)
[2019-05-14] MEDS ORDERED: SODIUM CHLORIDE 1,000 ML IV STA ×2 (16:48→18:30)
[2019-05-14] MEDS ORDERED: ONDANSETRON 4 MG/2 ML VIAL ONE (16:48)
[2019-05-14] MEDS ORDERED: morphine SULFATE 4 MG/ML VIAL ONE (17:59)
[2019-05-14] MEDS ORDERED: IBUPROFEN 800 MG/8 ML IJ IVPB ONE ×2 (19:02→20:02)
[2019-05-14] MEDS ORDERED: ACETAMINOPHEN 325 MG TABLET (FP) PO PRN (20:19)
--- NOTE | 2019-05-14 20:26 | PN ---
Teaching Attending Note Name of Resident: Mima Ring ATTENDING PHYSICIAN STATEMENT I saw and evaluated the patient. I reviewed the resident's note and discussed the case with the resident. I agree with the resident's findings and plan as documented. SUBJECTIVE: 44 year old female with a significant PMH of kidney infections, asthma, choledocholithiasis, PCOS, HTN, and bipolar disorder. Patient reported that on 05/10 she developed suprapubic pain and frequency and later developed right flank pain. The next day on Sunday, patient went to urgent care and was prescribed Macrobid and fluconazole. After taking Macrobid patient developed nausea and had diarrhea and 1 episode of non-biliary nonbloody emesis. OBJECTIVE: Last Vital Signs Temp Pulse Resp BP Pulse Ox 101.0 F H 112 H 17 148/74 95 05/14/19 19:00 05/14/19 19:00 05/14/19 15:44 05/14/19 19:00 05/14/19 19:00 GENERAL: Well developed, well nourished. Awake and alert. No acute distress. HEENT: Normocephalic, atraumatic. PERRLA, EOMI. No conjunctival pallor. Sclera are non- icteric. Moist mucous membranes. Oropharynx is clear. NECK: Supple. Full ROM. No JVD. Carotid pulses 2+ and symmetric, without bruits. No thyromegaly. No lymphadenopathy. CARDIOVASCULAR: Regular rate and rhythm. No murmurs, rubs, or gallops. Distal pulses are 2+ and symmetric. PULMONARY: No evidence of respiratory distress. Lungs clear to auscultation bilaterally. No wheezing, rales or rhonchi. ABDOMINAL: Soft. Non-tender. Non-distended. No rebound or guarding. No organomegaly. Normoactive bowel sounds. Right flank tenderness MUSCULOSKELETAL Normal range of motion at all joints. No bony deformities or tenderness. No CVA tenderness. EXTREMITIES: No cyanosis. No clubbing. No edema. No calf tenderness. SKIN: Warm and dry. Normal capillary refill. No rashes. No jaundice. NEUROLOGICAL: Alert, awake, appropriate. Cranial nerves 2-12 intact. No deficits to light touch and temperature in face, upper extremities and lower extremities. No motor deficits in the in face, upper extremities and lower extremities. Normoreflexic in the upper and lower extremities. Normal speech. Toes are down- going bilaterally. Gait is normal without ataxia. PSYCHIATRIC: Cooperative. Good eye contact. Appropriate mood and affect. Abnormal Lab Results 05/14/19 05/14/19 05/14/19 12:30 12:30 12:30 WBC 17.6 H Hgb 10.1 L Hct 31.3 L MCV 72.3 L MCH 23.4 L RDW 17.1 H Absolute Neuts (auto) 15.4 H Neutrophils % 87.8 H D Lymphocytes % 5.1 L D Retic Count PT with INR 15.40 H INR 1.30 H Sodium 132 L Potassium 3.4 L Creatinine 1.5 H Random Glucose 127 H Calcium 8.4 L Iron 18 L Iron Saturation 4 L Unsaturated IBC 386 H Total Bilirubin 1.5 H Albumin 3.3 L Urine Protein Urine Ketones Urine Blood Urine Nitrite Urine Bilirubin Ur Leukocyte Esterase 05/14/19 05/14/19 12:30 12:30 WBC Hgb Hct MCV MCH RDW Absolute Neuts (auto) Neutrophils % Lymphocytes % Retic Count 2.00 H PT with INR INR Sodium Potassium Creatinine Random Glucose Calcium Iron Iron Saturation Unsaturated IBC Total Bilirubin Albumin Urine Protein 3+ H Urine Ketones 2+ H Urine Blood 2+ H Urine Nitrite Positive H Urine Bilirubin 2+ H Ur Leukocyte Esterase 3+ H Imaging studies reviewed CT of abdomen pelvis showed mild right hydronephrosis. There is possible minimal right ureteral dilatation. No definite current urinary tract calculus was noted. 4.5 cm right ovarian cyst. 6.5 x 3 cm right adnexal cyst or dilated fallopian tube. 1 out of 2 blood cultures sets is growing gram-negative bacilli In anaerobic bottle ASSESSMENT AND PLAN: 44-year-old woman with sepsis secondary to right-sided pyelonephritis, growing gram-negative bacilli in 1 anaerobic blood culture bottle. Clinically responded after empiric treatment with high-dose Zosyn and vancomycin. Noted to have grown E. coli in urine culture of 2012 with TIMOTHY of 8 to ceftriaxone. Large right adnexal cyst with possible dilated fallopian tubewould investigate further with pelvic ultrasound to rule out any [employer] related because of infection. Admit to [facility] Blood cultures x2 Urine culture Monitor vital signs closely Vancomycin and Zosyn empirically. We will treat with 4.5 g of Zosyn every 6 at this time as patient had high Zosyn TMIOTHY to E. coli in 2012 Urine culture No need for fluconazole IV fluid hydration Urology evaluation for possible right ureteral stone. Especially in light of right-sided hydronephrosis. Transvaginal ultrasound for further evaluation of large right adnexal cyst and to rule out dilated fallopian tube. DVT prophylaxis with heparin subcutaneously
--- NOTE | 2019-05-14 20:46 | HP ---
CHIEF COMPLAINT: subjective fevers and flank pain PCP: Eduardo HISTORY OF PRESENT ILLNESS: 44 yo F PMH Asthma, PCOS, HTN, Bipolar II presents to the ED with polyuria since sunday. she states that her symptoms have been worsening since. she states that since sunday she began having flank pain and went to an urgent care who prescribed her pyridium, macrobid, and fluconazole. she states that the next day she began having fevers, nausea and vomiting. she was having worse pain. she states that this last happened a few years ago. ER course was notable for: (1)leukocytosis, febrile (2) (+) UA (3)ceftriaxone 1 g Recent Travel: denies PAST MEDICAL HISTORY: see HPI PAST SURGICAL HISTORY: cholecystectomy, fibroids, PCOS LMP: ? 04/24 Social History: Smoking:denies Alcohol:denies Drugs: denies Allergies Sulfa (Sulfonamide Antibiotics) Allergy (Severe, Verified 11/07/18 03:52) Vomiting latex Allergy (Mild, Verified 11/07/18 03:51) Hives nuts Allergy (Severe, Uncoded 11/07/18 03:51) Difficulty Breathing bananas Allergy (Mild, Uncoded 11/07/18 03:51) Itching HOME MEDICATIONS: Home Medications Medication Instructions Recorded Aripiprazole [Abilify] 15 mg PO DAILY 01/20/17 Dextroamphetamine/Amphetamine 25 mg PO DAILY 12/08/17 [Adderall Xr 20 mg Capsule] Lamotrigine [Lamictal] 50 mg PO DAILY 11/07/18 REVIEW OF SYSTEMS CONSTITUTIONAL: Present: fever,chills, generalized weakness, loss of appetite Absent: diaphoresis,malaise, weight change HEENT: Absent: rhinorrhea, nasal congestion, throat pain, throat swelling, difficulty swallowing, mouth swelling, ear pain, eye pain, visual changes CARDIOVASCULAR: Absent: chest pain, syncope, palpitations, irregular heart rate, lightheadedness , peripheral edema RESPIRATORY: Absent: cough, shortness of breath, dyspnea with exertion, orthopnea, wheezing, stridor, hemoptysis GASTROINTESTINAL: Present: abdominal pain, nausea, vomiting Absent: abdominal distension, diarrhea, constipation, melena, hematochezia GENITOURINARY: Present: frequency, flank pain Absent: dysuria, urgency, hesitancy, hematuria, genital pain MUSCULOSKELETAL: Absent: myalgia, arthralgia, joint swelling, back pain, neck pain SKIN: Absent: rash, itching, pallor HEMATOLOGIC/IMMUNOLOGIC: Absent: easy bleeding, easy bruising, lymphadenopathy, frequent infections ENDOCRINE: Absent: unexplained weight gain, unexplained weight loss, heat intolerance, cold intolerance NEUROLOGIC: Present: headache, dizziness Absent: focal weakness or paresthesias, unsteady gait, seizure, mental status changes, bladder or bowel incontinence PSYCHIATRIC: Absent: anxiety, depression, suicidal or homicidal ideation, hallucinations. PHYSICAL EXAMINATION Vital Signs - 24 hr 05/14/19 05/14/19 05/14/19 11:44 12:05 15:44 Temperature 101.9 F H 99.8 F H Pulse Rate 134 H Pulse Rate [ 104 H Right] Respiratory 18 17 Rate Blood Pressure 161/89 Blood Pressure 144/87 [Left Arm] O2 Sat by Pulse 9 L 99 98 Oximetry (%) 05/14/19 19:00 Temperature 101.0 F H Pulse Rate Pulse Rate [ 112 H Right] Respiratory Rate Blood Pressure Blood Pressure 148/74 [Left Arm] O2 Sat by Pulse 95 Oximetry (%) GENERAL: Awake, alert, and fully oriented, in no acute distress. obese female HEAD: Normal with no signs of trauma. EYES: Pupils equal, round and reactive to light, extraocular movements intact EARS, NOSE, THROAT: oropharynx clear without exudates. Moist mucous membranes. NECK: Normal range of motion, supple without lymphadenopathy, JVD, or masses. LUNGS: Breath sounds equal, clear to auscultation bilaterally. No wheezes, and no crackles. No accessory muscle use. HEART: Regular rate and rhythm, normal S1 and S2 without murmur, rub or gallop. ABDOMEN: Soft, tender at RUQ, LUQ and suprapubic, not distended, normoactive bowel sounds, no guarding, no rebound, + hepatomegaly MUSCULOSKELETAL: Normal range of motion at all joints. No bony deformities or tenderness. No CVA tenderness. UPPER EXTREMITIES: 2+ pulses, warm, well-perfused. No cyanosis. No clubbing. No peripheral edema. LOWER EXTREMITIES: 2+ pulses, warm, well-perfused. No calf tenderness. No peripheral edema. NEUROLOGICAL: Cranial nerves II-XII intact. Normal speech. PSYCHIATRIC: Cooperative. Good eye contact. Appropriate mood and affect. SKIN: Warm, dry, normal turgor, no rashes or lesions noted, normal capillary refill. Laboratory Last Values WBC 17.6 K/mm3 (4.0-10.0) H 05/14/19 12:30 RBC 4.33 M/mm3 (3.60-5.2) 05/14/19 12:30 Hgb 10.1 GM/dL (10.7-15.3) L 05/14/19 12:30 Hct 31.3 % (32.4-45.2) L 05/14/19 12:30 MCV 72.3 fl (80-96) L 05/14/19 12:30 MCH 23.4 pg (25.7-33.7) L 05/14/19 12:30 MCHC 32.4 g/dl (32.0-36.0) 05/14/19 12:30 RDW 17.1 % (11.6-15.6) H 05/14/19 12:30 Plt Count 277 K/MM3 (134-434) 05/14/19 12:30 MPV 8.8 fl (7.5-11.1) 05/14/19 12:30 Absolute Neuts (auto) 15.4 K/mm3 (1.5-8.0) H 05/14/19 12:30 Neutrophils % 87.8 % (42.8-82.8) H D 05/14/19 12:30 Lymphocytes % 5.1 % (8-40) L D 05/14/19 12:30 Monocytes % 6.6 % (3.8-10.2) 05/14/19 12:30 Eosinophils % 0.0 % (0-4.5) D 05/14/19 12:30 Basophils % 0.5 % (0-2.0) 05/14/19 12:30 Nucleated RBC % 0 % (0-0) 05/14/19 12:30 PT with INR 15.40 SEC (9.7-13.0) H 05/14/19 12:30 INR 1.30 (0.83-1.09) H 05/14/19 12:30 PTT (Actin FS) 27.2 SECONDS (25.2-36.5) 05/14/19 12:30 Sodium 132 mmol/L (136-145) L 05/14/19 12:30 Potassium 3.4 mmol/L (3.5-5.1) L 05/14/19 12:30 Chloride 98 mmol/L (98-107) 05/14/19 12:30 Carbon Dioxide 26 mmol/L (21-32) 05/14/19 12:30 Anion Gap 9 MMOL/L (8-16) 05/14/19 12:30 BUN 11.4 mg/dL (7-18) 05/14/19 12:30 Creatinine 1.5 mg/dL (0.55-1.3) H 05/14/19 12:30 Est GFR (CKD-EPI)AfAm 48.94 05/14/19 12:30 Est GFR (CKD-EPI)NonAf 42.23 05/14/19 12:30 Random Glucose 127 mg/dL (74-106) H 05/14/19 12:30 Lactic Acid 1.4 mmol/L (0.4-2.0) 05/14/19 12:30 Calcium 8.4 mg/dL (8.5-10.1) L 05/14/19 12:30 Total Bilirubin 1.5 mg/dL (0.2-1) H 05/14/19 12:30 AST 29 U/L (15-37) 05/14/19 12:30 ALT 21 U/L (13-61) 05/14/19 12:30 Alkaline Phosphatase 84 U/L (45-117) 05/14/19 12:30 Troponin I < 0.02 ng/ml (0.00-0.05) 05/14/19 12:30 Total Protein 7.2 g/dl (6.4-8.2) 05/14/19 12:30 Albumin 3.3 g/dl (3.4-5.0) L 05/14/19 12:30 Serum , Qual Negative 05/14/19 12:30 Urine Color [place] 05/14/19 12:30 Urine Appearance Turbid 05/14/19 12:30 Urine pH 5.5 (5.0-8.0) 05/14/19 12:30 Ur Specific [place] 1.023 (1.010-1.035) 05/14/19 12:30 Urine Protein 3+ (NEGATIVE) H 05/14/19 12:30 Urine Glucose (UA) Negative (NEGATIVE) 05/14/19 12:30 Urine Ketones 2+ (NEGATIVE) H 05/14/19 12:30 Urine Blood 2+ (NEGATIVE) H 05/14/19 12:30 Urine Nitrite Positive (NEGATIVE) H 05/14/19 12:30 Urine Bilirubin 2+ (NEGATIVE) H 05/14/19 12:30 Urine Urobilinogen 1.0 mg/dL (0.2-1.0) 05/14/19 12:30 Ur Leukocyte Esterase 3+ (NEGATIVE) H 05/14/19 12:30 Urine WBC (Auto) 3001 /hpf (0-5) 05/14/19 12:30 Urine RBC (Auto) 55.7 /hpf (0-4) 05/14/19 12:30 Urine Casts (Auto) 21 /lpf (0-8) 05/14/19 12:30 U Pathogenic Cast Auto None /lpf (NEGATIVE) 05/14/19 12:30 U Epithel Cells (Auto) 7.1 /HPF (0-5/HPF) 05/14/19 12:30 Urine Bacteria (Auto) 92.1 /hpf (NEGATIVE) 05/14/19 12:30 Influenza A (Rapid) Negative (Negative) 05/14/19 12:30 Influenza B (Rapid) Negative (Negative) 05/14/19 12:30 CT abdomen/ Pelvis: Impression: Mild right hydronephrosis is seen. There is also possible minimal right ureteral dilatation. No definite current urinary tract calculus is noted - ? possible recently passed calculus (versus less likely a nonradiopaque ureteral calculus). The findings may also be on the basis of coexisting acute pyelonephritis. If there is ongoing symptomatology follow-up CT is suggested. A 4.5 cm right ovarian cyst is noted. There also appears to be a 6.5 x 3 cm separate right adnexal cyst or dilated fallopian tube. Sonographic correlation is suggested, nonemergent unless otherwise clinically indicated. RUQ u/s : Minimal right hydronephrosis, new since 11/07/18. Hepatomegaly. Coarse liver echotexture, possibly steatosis. Cholecystectomy appearing since prior exam. Unremarkable visualized aorta and pancreas. Normal common duct diameter, 6 mm. Pelvic U/S, transvaginal u/s: 5.1 cm cyst right ovary, consider followup ultrasound in 6 or 10 weeks to assess for resolution. 1.8 cm dominant follicle left ovary. No ovarian torsion bilaterally. Color flow with appropriate arterial and/or venous waveforms. Dilated right adnexal tubular structure, probably hydrosalpinx. Small physiologic free fluid cul-de-sac. 2.5 cm uterine fibroid. Endometrial stripe complex 6 mm thick. Unremarkable visualized portion of bladder ASSESSMENT/PLAN: 44 yo F PMH Asthma, PCOS, HTN, Bipolar II admitted for acute pyelonephritis Sepsis 2/2 Acute Pyelonephritis -febrile, leukocytosis, PARVEZ - (+) UA -CT findings above -s/p ceftriaxone 1 g in ED - continue Zosyn. - Blood Cultures pending organism, gram neg bacilli . will rpt cultures daily until negative -abdomen, RUQ u/s , transvaginal u/s , pelvic u/s -Urine electrolytes -uculture pending - Urology ( Dr. Cleveland Garcia) consulted, no stone identified on CT, supportive measures recommended - continue with hydration - ID recs appreciated PARVEZ likely 2/2 pyelo - continue hydration, continue to monitor -avoid nephrotoxic agents Anemia - pending Fe studies R ovarian cyst - PEDIATRIC SPEECH THERAPIST f/u outpt -rpt u/s in 6-10 weeks DVT ppx: Heparin F/E/N -monitor lytes ATTENDING PHYSICIAN STATEMENT I saw and evaluated the patient. I reviewed the resident's note and discussed the case with the resident. I agree with the resident's findings and plan as documented. SUBJECTIVE: OBJECTIVE: ASSESSMENT AND PLAN:
--- NOTE | 2019-05-14 21:08 | CON.GU ---
Consult Consult Specialty:: urology Reason for Consultation:: right pyelonephritis - History of Present Illness Chief Complaint: right pyelonephritis History of Present Illness: Patient is a 44 year old female who had symptoms of a uti starting 5 days ago. Patient over last 2-3 days began having right flank pain with nausea and fever. She denies any history of stones. Denies gross hematuria - Past Medical History ...LMP: 12/22/11 - Alcohol/Substance Use Hx Alcohol Use: No - Smoking History Smoking history: Never smoked Have you smoked in the past 12 months: No Aproximately how many cigarettes per day: 0 Home Medications - Allergies Allergies/Adverse Reactions: Allergies Allergy/AdvReac Type Severity Reaction Status Date / Time Sulfa (Sulfonamide Allergy Severe Vomiting Verified 11/07/18 03:52 Antibiotics) latex Allergy Mild Hives Verified 11/07/18 03:51 nuts Allergy Severe Difficulty Uncoded 11/07/18 03:51 Breathing bananas Allergy Mild Itching Uncoded 11/07/18 03:51 - Home Medications Home Medications: Ambulatory Orders Aripiprazole [Abilify] 15 mg PO DAILY 01/20/17 Dextroamphetamine/Amphetamine [Adderall Xr 20 mg Capsule] 25 mg PO DAILY Lamotrigine [Lamictal] 50 mg PO DAILY 11/07/18 Physical Exam- Vital Signs: Vital Signs Temperature 101.0 F H 05/14/19 19:00 Pulse Rate 112 H 05/14/19 19:00 Respiratory Rate 17 05/14/19 15:44 Blood Pressure 148/74 05/14/19 19:00 O2 Sat by Pulse Oximetry (%) 95 05/14/19 19:00 Constitutional: Yes: No Distress, Calm Eyes: Yes: WNL, Conjunctiva Clear HENT: Yes: WNL, Atraumatic Neck: Yes: WNL, Supple, Trachea Midline Cardiovascular: Yes: Regular Rate and Rhythm Respiratory: Yes: Regular Gastrointestinal: Yes: Normal Bowel Sounds, Soft Renal/: Yes: CVA Tenderness - Right Kidneys: Yes: FLank Pain Right Pelvis: Yes: Bladder Non Palpable, Tenderness External Genitalia: Yes: WNL Musculoskeletal: Yes: WNL Extremities: Yes: WNL Integumentary: Yes: WNL Labs: CBC, BMP 05/14/19 12:30 01/08/20 12:30 Imaging - Results Cat Scan: Report Reviewed Assessment/Plan impression right pyelonephritis plan continue antibiotics minimal hydro noted secondary to cystitis supportive care
[2019-05-14] MEDS ORDERED: PIPERACILLIN/TAZOB 3.375 GM 3.375 GM in DEXTROSE 5%-WATER - 50 ML IVPB SCH (21:45)
[2019-05-14] MEDS ORDERED: PIPERACILLIN/TAZOB 4.5 GM 4.5 GM in DEXTROSE 5%-WATER 100 ML IVPB ONE (22:00)
[2019-05-14] MEDS ORDERED: VANCOMYCIN 1 GM in D5W (PRE-DOCKED) 1,000 MG/250 ML IVPB ONE (22:00)
[2019-05-14 22:02] LABS: IRON SERUM 18 ug/dL (50-175); TOTAL IRON BINDING CAPACITY 404 ug/dL (250-450)
[2019-05-14] MEDS ORDERED: KCL 10 MEQ IVPB 10 MEQ/100 ML INFUS.BAG IVPB ONE (22:21)
[2019-05-14] MEDS: KCL 10 MEQ IVPB 10 MEQ/100 ML INFUS.BAG IVPB SCH (22:24)
[2019-05-14] MEDS: SODIUM CHLORIDE 1,000 ML IV SCH (22:34)
[2019-05-14] MEDS ORDERED: VANCOMYCIN 1 GRAM (PRE-DOCKED) 1,000 MG/250 ML BAG IVPB ONE (22:35)
[2019-05-14] MEDS ORDERED: PIPERACILLIN/TAZOB 4.5 GM 4.5 GM/100 ML BAG IVPB ONE (22:35)
[2019-05-15] MEDS: KCL 10 MEQ IVPB 10 MEQ/100 ML INFUS.BAG IVPB SCH (01:28)
[2019-05-15 02:03] VITALS: BMI 40.4
[2019-05-15] MEDS: ARIPiprazole 15 MG TABLET PO SCH ×2 (02:58→22:11)
[2019-05-15] MEDS: lamoTRIgine 25 MG TABLET PO SCH ×2 (02:59→22:11)
[2019-05-15] MEDS ORDERED: PIPERACILLIN/TAZOBACTAM 4.5 GM VIAL IVPB ONE ×2 (03:50→09:34)
[2019-05-15] MEDS ORDERED: DEXTROSE 5%-WATER 100 ML IVPB ONE ×2 (03:50→09:34)
[2019-05-15] MEDS: PIPERACILLIN/TAZOB 4.5 GM 4.5 GM in DEXTROSE 5%-WATER 100 ML IVPB SCH ×2 (04:03→09:35)
[2019-05-15] MEDS ORDERED: HEPARIN NA (PORCINE) 5,000 UNITS/ML 1ML VIAL SQ SCH (06:00)
[2019-05-15 08:03] LABS: BASO % 0.4 % (0-2.0); EOS % 0.2 % (0-4.5); HEMATOCRIT 26.9 % (32.4-45.2); HEMOGLOBIN 8.7 GM/dL (10.7-15.3); LYMPH % 3.8 % (8-40); MCH 23.8 pg (25.7-33.7); MCHC 32.2 g/dl (32.0-36.0); MEAN CELL VOLUME 73.8 fl (80-96); MEAN PLT VOLUME 8.9 fl (7.5-11.1); MONO % 6.8 % (3.8-10.2); NEUT % 88.8 % (42.8-82.8); PLATELET COUNT 169 K/MM3 (134-434); RBC 3.64 M/mm3 (3.60-5.2); RDW 17.1 % (11.6-15.6); WHITE BLOOD COUNT 17.8 K/mm3 (4.0-10.0)
[2019-05-15 08:27] LABS: ALBUMIN 2.4 g/dl (3.4-5.0); BILIRUBIN,TOTAL 1.2 mg/dL (0.2-1); BLOOD UREA NITROGEN 12.1 mg/dL (7-18); CALCIUM 7.2 mg/dL (8.5-10.1); CREATININE 1.1 mg/dL (0.55-1.3); MAGNESIUM 1.8 mg/dL (1.8-2.4); PHOSPHOROUS 2.1 mg/dL (2.5-4.9); POTASSIUM 3.3 mmol/L (3.5-5.1); TOT PROT 5.8 g/dl (6.4-8.2)
[2019-05-15] MEDS ORDERED: HYDROCHLOROTHIAZIDE 12.5 MG CAPSULE (FP) PO SCH (10:00)
[2019-05-15] MEDS ORDERED: POTASSIUM CHLORIDE TABS 20 MEQ TABLET.ER (FP) PO ONE ×2 (11:45→17:00)
[2019-05-15] MEDS ORDERED: NAPH,MB-DB/K PH,MBDB POWDER PACKET PO ONE ×2 (11:45→17:00)
[2019-05-15] MEDS: ONDANSETRON 4 MG/2 ML VIAL IVPUSH PRN ×2 (12:32→17:32)
[2019-05-15] MEDS ORDERED: ACETAMINOPHEN 325 MG TABLET (FP) PO PRN (13:46)
[2019-05-15] MEDS: SODIUM CHLORIDE 1,000 ML IV SCH (14:59)
--- NOTE | 2019-05-15 15:28 | PN ---
Physical Exam: SUBJECTIVE: Patient seen and examined at the bedside. Patient stated she felt better but still continued to endorse back pain,some abdominal pain, subjective fevers, headaches. Stated her appetite was poor. Denied cp, sob, n/v/c/d, dizziness, lightheadedness. OBJECTIVE: Vital Signs Period Temp Pulse Resp BP Sys/Sanchez Pulse Ox Last 24 Hr 98 F-101.0 F 85-112 17-18 100-170/59-88 95-98 GENERAL: The patient is awake, alert, and fully oriented, in no acute distress. HEAD: Normal with no signs of trauma. EYES: PERRL, extraocular movements intact, sclera anicteric, conjunctiva clear. ENT: Oropharynx clear without exudates, dry mucous membranes. NECK: Trachea midline, full range of motion, supple. LUNGS: Breath sounds equal, clear to auscultation bilaterally, no wheezes, no crackles, no accessory muscle use. HEART: Regular rate and rhythm, S1, S2 without murmur, rub. ABDOMEN: Soft, nontender, nondistended, normoactive bowel sounds, no guarding, no rebound, no masses. EXTREMITIES: 2+ pulses, warm, well-perfused, no edema. NEUROLOGICAL: Cranial nerves II through XII grossly intact. 5/5 muscle strength bilaterally, upper and lower extremities. PSYCH: Normal mood, normal affect. SKIN: Warm, dry, normal turgor, no rashes or lesions noted Laboratory Results - last 24 hr 05/14/19 05/14/19 05/14/19 12:30 12:30 12:30 WBC 17.6 H RBC 4.33 Hgb 10.1 L Hct 31.3 L MCV 72.3 L MCH 23.4 L MCHC 32.4 RDW 17.1 H Plt Count 277 MPV 8.8 Absolute Neuts (auto) 15.4 H Neutrophils % 87.8 H D Lymphocytes % 5.1 L D Monocytes % 6.6 Eosinophils % 0.0 D Basophils % 0.5 Nucleated RBC % 0 Retic Count Cancelled 2.00 H Sodium 132 L Potassium 3.4 L Chloride 98 Carbon Dioxide 26 Anion Gap 9 BUN 11.4 Creatinine 1.5 H Est GFR (CKD-EPI)AfAm 48.94 Est GFR (CKD-EPI)NonAf 42.23 Random Glucose 127 H Calcium 8.4 L Phosphorus Magnesium Iron 18 L TIBC 404 Iron Saturation 4 L Unsaturated IBC 386 H Ferritin 34.2 Total Bilirubin 1.5 H AST 29 ALT 21 Alkaline Phosphatase 84 Troponin I < 0.02 Total Protein 7.2 Albumin 3.3 L TSH 0.53 Ur Random Sodium Ur Random Potassium Ur Random Chloride 05/15/19 05/15/19 05/15/19 06:15 07:25 07:25 WBC 17.8 H RBC 3.64 Hgb 8.7 L Hct 26.9 L MCV 73.8 L MCH 23.8 L MCHC 32.2 RDW 17.1 H Plt Count 169 D MPV 8.9 Absolute Neuts (auto) 15.8 H Neutrophils % 88.8 H Lymphocytes % 3.8 L D Monocytes % 6.8 Eosinophils % 0.2 D Basophils % 0.4 Nucleated RBC % 0 Retic Count Sodium 138 Potassium 3.3 L Chloride 106 Carbon Dioxide 24 Anion Gap 9 BUN 12.1 Creatinine 1.1 Est GFR (CKD-EPI)AfAm 71.21 Est GFR (CKD-EPI)NonAf 61.44 Random Glucose 112 H Calcium 7.2 L Phosphorus 2.1 L Magnesium 1.8 Iron TIBC Iron Saturation Unsaturated IBC Ferritin Total Bilirubin 1.2 H AST 18 ALT 20 Alkaline Phosphatase 66 Troponin I Total Protein 5.8 L Albumin 2.4 L TSH Ur Random Sodium 24 L Ur Random Potassium 41.0 Ur Random Chloride 25 L Active Medications Generic Name Dose Route Start Last Admin Trade Name Freq PRN Reason Stop Dose Admin Acetaminophen 650 mg 05/15/19 13:46 05/15/19 13:57 Tylenol - PO 650 mg Q6H PRN Administration Fever Or Pain Aripiprazole 15 mg 05/15/19 02:30 05/15/19 02:58 Abilify PO 15 mg HS ANGLE Administration Sodium Chloride 1,000 mls @ 100 mls/hr 05/14/19 21:45 05/15/19 14:59 Normal Saline - IV 100 mls/hr ASDIR ANGLE Administration Piperacillin Sod/Tazobactam 50 mls @ 100 mls/hr 05/15/19 18:00 Sod 3.375 gm/ Dextrose IVPB Q8H-IV ANGLE Protocol Lamotrigine 100 mg 05/15/19 02:19 05/15/19 02:59 Lamictal - PO 100 mg HS ANGLE Administration Ondansetron HCl 4 mg 05/15/19 12:25 05/15/19 12:32 Zofran Injection IVPUSH 4 mg Q8H PRN Administration NAUSEA ASSESSMENT/PLAN: Laverne Olivo is a 44 year old female with a past medical history of anemia ( requiring transfusions), asthma, PCOS, HTN, Bipolar II admitted for acute pyelonephritis. Sepsis 2/2 Acute Pyelonephritis - febrile, leukocytosis, PARVEZ - (+) UA - CT findings noting mild R hydronephrosis, mild R ureteral dilaation, no calculus - continue Zosyn - ID consulted, recs appreciated - Blood Cultures noting gram neg bacilli, pending organism - ucx pending - Urology consulted, no stone identified on CT, supportive measures recommended - continue with hydration - may need uptitration of antibiotics depending on clinical course PARVEZ likely 2/2 pyelo - improving, today 1.1 - continue hydration, continue to monitor - avoid nephrotoxic agents Anemia - iron studies noting iron deficiency - will require outpatient GI follow up R ovarian cyst - as noted on CT abd pelvis, pelvic U/S noting right ovary cyst, no torsion - YARDER BOSS f/u outpatient - rpt u/s in 6-10 weeks DVT ppx - SCDs FEN - NS at 100cc/hr - continue to monitor electrolytes and replete as necessary - sodium controlled diet Dispo - continue to monitor on Med-surg Visit type - Emergency Visit Emergency Visit: Yes ED Registration Date: 05/14/19 Care time: The patient presented to the Emergency Department on the above date and was hospitalized for further evaluation of their emergent condition. - New Patient This patient is new to me today: Yes Date on this admission: 05/15/19 - Critical Care Critical Care patient: No
--- NOTE | 2019-05-15 16:06 | PN ---
Progress Note (short form) - Note Progress Note: ID CONSULT DICTATED GRAM NEGATIVE BACTEREMIA/ SEPSIS SECONDARY TO SOURCE ACUTE PYELONEPHRITIS FEVER/ LEUKOCYTOSIS PENDING C/S CONTINUE EMPIRIC ZOSYN
--- NOTE | 2019-05-15 16:34 | CONS ---
INFECTIOUS DISEASE CONSULTATION DATE OF CONSULTATION: DATE OF DICTATION: 05/15/2019 REASON FOR CONSULTATION: The patient is a 44-year-old, female who is evaluated for gram-negative sepsis. History was obtained from the chart, as well as the patient. HISTORY OF PRESENT ILLNESS: She is a 44-year-old female with a history of urinary tract infections in the past who was admitted to the hospital on May 14, 2019, with complaint of urinary tract symptoms. She began to develop suprapubic pain, on Sunday, May 10, 2019, associated with urinary frequency and urgency. She had developed fever. She presented to an [facility] center where she was prescribed Macrobid. Despite the antibiotic therapy, she continued to have suprapubic pain and frequency and developed right flank pain. She presented to the emergency room, where she was noted to have fever of 101.9. Initial evaluation showed many white cells in the urine. She was empirically treated with Zosyn. Blood cultures are now positive for gram-negative rods. At the present time, she complains of headache. She continues to complain of urinary frequency. She denies any dysuria or hematuria. She also continues to complain of right flank pain. The patient has had urinary tract infections in the past. On review of her microbiology, she had a sensitive E coli in the urine in 2011. PAST MEDICAL HISTORY: Positive for pyelonephritis, asthma, choledocholithiasis, hypertension, bipolar disorder. ALLERGIES: SULFA. MEDICATIONS: Abilify, Adderall, Lamictal. SOCIAL HISTORY: She lives in the community. She is a nonsmoker, nondrinker. HIV status not known. SYSTEMS REVIEW: Neurologic: No loss of consciousness, seizure activity, focal weakness. Cardiac: Negative chest pain or palpitations. Respiratory: Negative cough or sputum production. Gastrointestinal: Negative vomiting or diarrhea. Genitourinary: As per HPI. LABORATORY DATA: White count 17.8, neutrophils 88, lymphocytes 3, monocytes 6, hematocrit 26.9, platelets 169. Creatinine 1.1. Urinalysis: Leukocyte esterase 3+, white cells 3001. Influenza swab negative. Blood cultures growing a lactose boss dyer. CAT scan of the abdomen and pelvis: Mild right hydronephrosis. Possible minimal right ureteral dilatation. No definite calculus is noted. Right adnexal cyst. PHYSICAL EXAMINATION: General: On physical examination, she is awake. She is supine in bed, complaining of headache. Vital Signs: Temperature 98, T-maximum 101.9, blood pressure 120/70, pulse 88 regular, respirations 16 per minute. Eyes: Sclerae are anicteric. Heart: Heart sounds S1, S2. Lungs: Clear. Abdomen: Soft. There is suprapubic tenderness to palpation, as well as right CVA tenderness. Extremities: Negative for edema. IMPRESSION: 1. Gram-negative bacteremia/sepsis, secondary to genitourinary source. 2. Acute right pyelonephritis. 3. Fever, leukocytosis. Await culture results. Continue Zosyn 3.375 g IV piggyback every 8 hours, pending cultures. IV fluid hydration. Urology followup. Will follow. Thank you for the kind referral. MIREYA EASON M.D. [id number]
[2019-05-15] MEDS ORDERED: PIPERACILLIN/TAZOBACTAM 3.375 GM VIAL IVPB ONE (17:08)
[2019-05-15] MEDS ORDERED: DEXTROSE 5%-WATER - 50 ML IVPB ONE (17:08)
[2019-05-15] MEDS: PIPERACILLIN/TAZOB 3.375 GM 3.375 GM in DEXTROSE 5%-WATER - 50 ML IVPB SCH (17:12)
--- NOTE | 2019-05-15 19:28 | PN ---
Teaching Attending Note Name of Resident: Jose Juan Ramírez ATTENDING PHYSICIAN STATEMENT I saw and evaluated the patient. I reviewed the resident's note and discussed the case with the resident. I agree with the resident's findings and plan as documented. Admitted last night with pyelonephritis. Stable. Obtaining records and controlling symptoms. All her questions were answered. Imaging reviewed in depth 10 sys ROS done and negative aside from HPI NAD AAO Resting in bed +pain on R-fist percussion NT ND +BS CN2-12 wnl, no fnd Normal HR to slightly tachy with +s1/2 Imaging reviewed EKG reviewed ASSESSMENT AND PLAN: Presents with pyelo; no clear MDRO but given imaging findings assuming we could have potential to deal with MDRO (eespecially with respect to guidelines for management of infected renal stones). Will have low threshold to broaden and FU with ID. -Sepsis secondary to likely urinary source; abx followup ID and micro -GNB Bacteremia -Bipolar disorder Full Code
[2019-05-15] MEDS ORDERED: PIPERACILLIN/TAZOB 4.5 GM 4.5 GM in DEXTROSE 5%-WATER 100 ML IVPB SCH (21:00)
[2019-05-15] MEDS ORDERED: PT OWN MED DRAWER 7, Y5N ONE (21:31)
[2019-05-15] MEDS ORDERED: ARIPiprazole 5 MG TABLET (FP) PO SCH (22:00)
[2019-05-15] MEDS: ACETAMINOPHEN 500 MG TABLET (FP) PO PRN (22:12)
[2019-05-16] MEDS: SODIUM CHLORIDE 1,000 ML IV SCH ×2 (00:09→21:05)
[2019-05-16] MEDS ORDERED: PIPERACILLIN/TAZOBACTAM 3.375 GM VIAL IVPB ONE (02:34)
[2019-05-16] MEDS ORDERED: DEXTROSE 5%-WATER - 50 ML IVPB ONE (02:34)
[2019-05-16] MEDS: PIPERACILLIN/TAZOB 3.375 GM 3.375 GM in DEXTROSE 5%-WATER - 50 ML IVPB SCH (02:43)
--- NOTE | 2019-05-16 04:34 | PN ---
Progress Note (short form) - Note Progress Note: Received sign out from day team on 05/15 that if pt febrile overnight to consider meropenem pt spiked fever 102.3 will start meropenem
[2019-05-16] MEDS: MEROPENEM 1 GM in DEXTROSE 5%-WATER 100 ML IVPB SCH ×2 (05:00→09:41)
[2019-05-16] MEDS ORDERED: DEXTROSE 5%-WATER 100 ML IVPB ONE (05:43)
[2019-05-16] MEDS ORDERED: MEROPENEM 1 GM VIAL (RESTRICTED TO ID) IVPB ONE (05:43)
--- NOTE | 2019-05-16 06:18 | PN ---
Physical Exam: SUBJECTIVE: Patient seen and examined at the bedside. Overnight events noted. Stated that she felt better and has decreased pain. Noted that she didn't have a very good appetite but also did not like the food. Continued to endorse some right flank pain. Endorsed 2 loose bowel movements. Denied cp, sob, abd pain, n/ v/c, dizziness, lightheadedness. OBJECTIVE: Vital Signs Period Temp Pulse Resp BP Sys/Sanchez Pulse Ox Last 24 Hr 98 F-102.9 F 88-107 18-18 123-155/70-88 97-98 GENERAL: The patient is awake, alert, and fully oriented, in no acute distress. HEAD: Normal with no signs of trauma. EYES: PERRL, extraocular movements intact, sclera anicteric, conjunctiva clear. ENT: Oropharynx clear without exudates, dry mucous membranes. NECK: Trachea midline, full range of motion, supple. LUNGS: Breath sounds equal, clear to auscultation bilaterally, no wheezes, no crackles, no accessory muscle use. HEART: Regular rate and rhythm, S1, S2 without murmur, rub. ABDOMEN: Soft, nontender, nondistended, normoactive bowel sounds, no guarding, no rebound, no masses. Mild CVA tenderness. EXTREMITIES: 2+ pulses, warm, well-perfused, no edema. NEUROLOGICAL: Cranial nerves II through XII grossly intact. 5/5 muscle strength bilaterally, upper and lower extremities. PSYCH: Normal mood, normal affect. SKIN: Warm, dry, normal turgor, no rashes or lesions noted Laboratory Results - last 24 hr 05/15/19 05/15/19 05/15/19 06:15 07:25 07:25 WBC 17.8 H RBC 3.64 Hgb 8.7 L Hct 26.9 L MCV 73.8 L MCH 23.8 L MCHC 32.2 RDW 17.1 H Plt Count 169 D MPV 8.9 Absolute Neuts (auto) 15.8 H Neutrophils % 88.8 H Lymphocytes % 3.8 L D Monocytes % 6.8 Eosinophils % 0.2 D Basophils % 0.4 Nucleated RBC % 0 Sodium 138 Potassium 3.3 L Chloride 106 Carbon Dioxide 24 Anion Gap 9 BUN 12.1 Creatinine 1.1 Est GFR (CKD-EPI)AfAm 71.21 Est GFR (CKD-EPI)NonAf 61.44 Random Glucose 112 H Calcium 7.2 L Phosphorus 2.1 L Magnesium 1.8 Total Bilirubin 1.2 H AST 18 ALT 20 Alkaline Phosphatase 66 Total Protein 5.8 L Albumin 2.4 L Ur Random Sodium 24 L Ur Random Potassium 41.0 Ur Random Chloride 25 L Active Medications Generic Name Dose Route Start Last Admin Trade Name Freq PRN Reason Stop Dose Admin Acetaminophen 1,000 mg 05/15/19 18:26 05/15/19 22:12 Tylenol - PO 1,000 mg Q6H PRN Administration Fever Or Pain Aripiprazole 15 mg 05/15/19 02:30 05/15/19 22:11 Abilify PO 15 mg HS ANGLE Administration Sodium Chloride 1,000 mls @ 100 mls/hr 05/14/19 21:45 05/16/19 00:09 Normal Saline - IV 100 mls/hr ASDIR ANGLE Administration Meropenem 1 gm/ Dextrose 100 mls @ 200 mls/hr 05/16/19 04:45 05/16/19 05:00 IVPB 05/16/19 18:29 200 mls/hr Q8H-IV ANGLE Administration Meropenem 1 gm/ Dextrose 100 mls @ 200 mls/hr 05/17/19 02:00 IVPB Q8H-IV ANGLE Lamotrigine 100 mg 05/15/19 02:19 05/15/19 22:11 Lamictal - PO 100 mg HS ANGLE Administration Ondansetron HCl 4 mg 05/15/19 12:25 05/15/19 17:32 Zofran Injection IVPUSH 4 mg Q8H PRN Administration NAUSEA ASSESSMENT/PLAN: Laverne Olivo is a 44 year old female with a past medical history of anemia ( requiring transfusions), asthma, PCOS, HTN, Bipolar II admitted for acute pyelonephritis. Sepsis 2/2 Acute Pyelonephritis - febrile, leukocytosis, PARVEZ - (+) UA - CT findings noting mild R hydronephrosis, mild R ureteral dilaation, no calculus - switched to meropenem overnight, will stop now and start on cefazolin 2gm q8h as per discussion with ID - monitor for fevers, will need at least 24 hours of patient being afebrile before deescalation to PO abx - ID consulted, recs appreciated - Blood Cultures noting Ecoli sethi-sensitive - ucx negative - Urology consulted, no stone identified on CT, supportive measures recommended - continue with hydration PARVEZ likely 2/2 pyelo - improving, today 1.0 - continue hydration, continue to monitor - avoid nephrotoxic agents Anemia - iron studies noting iron deficiency - will require outpatient GI follow up R ovarian cyst - as noted on CT abd pelvis, pelvic U/S noting right ovary cyst, no torsion - I&C TECH f/u outpatient - rpt u/s in 6-10 weeks Bipolar Disorder - on lamictal, Abilify DVT ppx - SCDs FEN - NS at 100cc/hr - continue to monitor electrolytes and replete as necessary, hypokalemia and hypophosphatemia noted and repleted - sodium controlled diet Dispo - continue to monitor on Med-surg Visit type - Emergency Visit Emergency Visit: Yes ED Registration Date: 05/14/19 Care time: The patient presented to the Emergency Department on the above date and was hospitalized for further evaluation of their emergent condition. - New Patient This patient is new to me today: No - Critical Care Critical Care patient: No
[2019-05-16 07:19] LABS: BASO % 0.8 % (0-2.0); EOS % 0.8 % (0-4.5); HEMATOCRIT 26.9 % (32.4-45.2); HEMOGLOBIN 8.6 GM/dL (10.7-15.3); LYMPH % 9.4 % (8-40); MCH 23.3 pg (25.7-33.7); MCHC 31.9 g/dl (32.0-36.0); MEAN CELL VOLUME 73.1 fl (80-96); MEAN PLT VOLUME 9.2 fl (7.5-11.1); MONO % 6.4 % (3.8-10.2); NEUT % 82.6 % (42.8-82.8); PLATELET COUNT 175 K/MM3 (134-434); RBC 3.68 M/mm3 (3.60-5.2); RDW 17.9 % (11.6-15.6); WHITE BLOOD COUNT 12.2 K/mm3 (4.0-10.0)
[2019-05-16 07:50] LABS: BLOOD UREA NITROGEN 8.3 mg/dL (7-18); CALCIUM 7.5 mg/dL (8.5-10.1); POTASSIUM 3.4 mmol/L (3.5-5.1)
[2019-05-16] MEDS ORDERED: POTASSIUM CHLORIDE TABS 20 MEQ TABLET.ER (FP) PO ONE (08:26)
[2019-05-16] MEDS ORDERED: MEROPENEM 1 GM in DEXTROSE 5%-WATER 100 ML IVPB SCH (09:42)
[2019-05-16] MEDS: ACETAMINOPHEN 500 MG TABLET (FP) PO PRN ×2 (09:56→20:59)
--- NOTE | 2019-05-16 10:07 | PN ---
Teaching Attending Note Name of Resident: Jose Juan Ramírez Seen and examined; agree with the above aside from as supplemented by myself. Overall they remain stable but require inpatient hospitalization for ab. Discussed with residents and indicated consulting services in depth. I agree with their note as documented aside from as supplemented by myself below. Pain is improved. Did broaden. In office cultures returned a sethi sensative organism which is reflected in our data here so we will followup and narrow coverage per ID. 10 sys ROS done and negative aside from HPI NAD AAO Resting in bed +pain on R-fist percussion but improved. NT ND +BS CN2-12 wnl, no fnd Normal HR with +s1/2 Lungs CTAB, w/ sym ep Imaging reviewed EKG reviewed ASSESSMENT AND PLAN: Presents with pyelo; no clear MDRO but given imaging findings assuming we could have potential to deal with MDRO (especially with respect to guidelines for management of infected renal stones). Will have low threshold to broaden and FU with ID. Problems include: -Sepsis secondary to likely urinary source, improved -E. coli bacteremia, on abx. Determining final course and narrowing -Bipolar disorder, continue home meds -Multiple food allergies. -Chronic microcytic anemia, likely with acute on chronic component. No IV iron when acutely ill. Followup with PCP. Doesn't technically neeed a scope as 44 and no active bleeding. -Morbid Obesity (BMI >40) Full Code
[2019-05-16 10:21] LABS: PHOSPHOROUS 1.8 mg/dL (2.5-4.9)
[2019-05-16] MEDS ORDERED: POTASSIUM PHOSPHATE 30 MM in SODIUM CHLORIDE 500 ML IVPB ONE (12:00)
[2019-05-16] MEDS ORDERED: PT OWN MED DRAWER 7, Y5N ONE ×2 (12:13→18:13)
[2019-05-16] MEDS: NAPH,MB-DB/K PH,MBDB POWDER PACKET PO SCH ×3 (12:14→21:08)
[2019-05-16] MEDS: CEFAZOLIN 2 GM/D5W 2 GM/50 ML ML IVPB SCH ×2 (15:04→17:14)
--- NOTE | 2019-05-16 17:24 | PN ---
Progress Note, Physician History of Present Illness: AWAKE IN BED REMAINS INTERMITANTLY FEBRILE C/O LOOSE STOOL NO C/O DYSURIA + URGENCY NO SUPRAPUBIC OR FLANK PAIN BLOOD C/S E COLI - Current Medication List Current Medications: Active Medications Acetaminophen (Tylenol -) 1,000 mg PO Q6H PRN PRN Reason: Fever Or Pain Last Admin: 05/16/19 09:56 Dose: 1,000 mg Aripiprazole (Abilify) 15 mg PO HS [facility] Last Admin: 05/15/19 22:11 Dose: 15 mg Sodium Chloride (Normal Saline -) 1,000 mls @ 100 mls/hr IV ASDIR ANGLE Last Admin: 05/16/19 00:09 Dose: 100 mls/hr Potassium Phosphate 30 mm/ (Sodium Chloride) 510 mls @ 85 mls/hr IVPB ONCE ONE Stop: 05/16/19 17:59 Last Admin: 05/16/19 12:14 Dose: 85 mls/hr Cefazolin Sodium/Dextrose (Ancef 2 Gm Premixed Ivpb -) 2 gm in 50 mls @ 100 mls /hr IVPB Q8H-IV ANGLE Last Admin: 05/16/19 17:14 Dose: 100 mls/hr Lamotrigine (Lamictal -) 100 mg PO HS [facility] Last Admin: 05/15/19 22:11 Dose: 100 mg Ondansetron HCl (Zofran Injection) 4 mg IVPUSH Q8H PRN PRN Reason: NAUSEA Last Admin: 05/15/19 17:32 Dose: 4 mg Potassium Phos/Sodium Phos (Phos-Nak Packet -) 1 packet PO BID ANGLE Stop: 05/17/19 22:01 Last Admin: 05/16/19 12:20 Dose: Not Given - Objective Vital Signs: Vital Signs Temperature 99.3 F 05/16/19 14:58 Pulse Rate 83 05/16/19 14:58 Respiratory Rate 18 05/16/19 14:58 Blood Pressure 135/86 05/16/19 14:58 O2 Sat by Pulse Oximetry (%) 98 05/16/19 08:23 Constitutional: Yes: No Distress Eyes: Yes: Conjunctiva Clear Cardiovascular: Yes: Regular Rate and Rhythm, S1, S2 Respiratory: Yes: CTA Bilaterally Gastrointestinal: Yes: Normal Bowel Sounds, Soft. No: Tenderness Genitourinary: Yes: CVA Tenderness - Right. No: CVA Tenderness - Left Labs: CBC, BMP 05/16/19 06:55 05/16/19 06:55 INR, PTT INR 1.30 (0.83-1.09) H 05/14/19 12:30 Assessment/Plan ACUTE PYELONEPHRITIS E COLI BACTEREMIA SECONDARY TO SKIN SOURCE LEUKOCYTOSIS IMPROVED AZOTEMIA IMPROVED SUBSTITUTE CEFAZOLIN 2GM Q8H
[2019-05-16] MEDS: ARIPiprazole 15 MG TABLET PO SCH (21:00)
[2019-05-16] MEDS: lamoTRIgine 25 MG TABLET PO SCH (21:00)
[2019-05-17] MEDS ORDERED: MEROPENEM 1 GM in DEXTROSE 5%-WATER 100 ML IVPB SCH (02:00)
[2019-05-17] MEDS: CEFAZOLIN 2 GM/D5W 2 GM/50 ML ML IVPB SCH ×3 (02:05→17:07)
[2019-05-17 06:35] LABS: BASO % 0.7 % (0-2.0); EOS % 1.3 % (0-4.5); HEMATOCRIT 23.9 % (32.4-45.2); HEMOGLOBIN 7.8 GM/dL (10.7-15.3); LYMPH % 14.1 % (8-40); MCH 23.9 pg (25.7-33.7); MCHC 32.8 g/dl (32.0-36.0); MEAN CELL VOLUME 72.8 fl (80-96); MEAN PLT VOLUME 9.2 fl (7.5-11.1); MONO % 9.5 % (3.8-10.2); NEUT % 74.4 % (42.8-82.8); PLATELET COUNT 155 K/MM3 (134-434); RBC 3.28 M/mm3 (3.60-5.2); RDW 17.6 % (11.6-15.6); WHITE BLOOD COUNT 8.3 K/mm3 (4.0-10.0)
[2019-05-17 06:56] LABS: CALCIUM 7.7 mg/dL (8.5-10.1); CREATININE 0.9 mg/dL (0.55-1.3); MAGNESIUM 2.1 mg/dL (1.8-2.4); PHOSPHOROUS 2.5 mg/dL (2.5-4.9); POTASSIUM 3.7 mmol/L (3.5-5.1)
[2019-05-17] MEDS: NAPH,MB-DB/K PH,MBDB POWDER PACKET PO SCH ×3 (11:21→21:19)
--- NOTE | 2019-05-17 13:23 | PN ---
Physical Exam: SUBJECTIVE: Patient seen and examined. She feels well and would like to go home. OBJECTIVE: Vital Signs Period Temp Pulse Resp BP Sys/Sanchez Pulse Ox Last 24 Hr 98.4 F-99.3 F 77-90 18-18 130-143/62-86 99-100 GENERAL: The patient is awake, alert, and fully oriented, in no acute distress. LUNGS: Breath sounds equal, clear to auscultation bilaterally, no wheezes, no crackles, no accessory muscle use. HEART: Regular rate and rhythm, S1, S2 without murmur, rub or gallop. ABDOMEN: Obese, soft, nontender, nondistended, normoactive bowel sounds, no guarding, no rebound, no hepatosplenomegaly, no masses. EXTREMITIES: 2+ pulses, warm, well-perfused, no edema. Laboratory Results - last 24 hr 05/17/19 05/17/19 05:58 05:58 WBC 8.3 RBC 3.28 L Hgb 7.8 L Hct 23.9 L MCV 72.8 L MCH 23.9 L MCHC 32.8 RDW 17.6 H Plt Count 155 MPV 9.2 Absolute Neuts (auto) 6.2 Neutrophils % 74.4 Lymphocytes % 14.1 D Monocytes % 9.5 Eosinophils % 1.3 Basophils % 0.7 Nucleated RBC % 0 Sodium 139 Potassium 3.7 Chloride 109 H Carbon Dioxide 24 Anion Gap 6 L BUN 8.0 Creatinine 0.9 Est GFR (CKD-EPI)AfAm 90.76 Est GFR (CKD-EPI)NonAf 78.31 Random Glucose 98 Calcium 7.7 L Phosphorus 2.5 Magnesium 2.1 Active Medications Generic Name Dose Route Start Last Admin Trade Name Freq PRN Reason Stop Dose Admin Acetaminophen 1,000 mg 05/15/19 18:26 05/16/19 20:59 Tylenol - PO 1,000 mg Q6H PRN Administration Fever Or Pain Aripiprazole 15 mg 05/15/19 02:30 05/16/19 21:00 Abilify PO 15 mg HS ANGLE Administration Sodium Chloride 1,000 mls @ 100 mls/hr 05/14/19 21:45 05/16/19 21:05 Normal Saline - IV 100 mls/hr ASDIR ANGLE Administration Cefazolin Sodium/Dextrose 2 gm in 50 mls @ 100 mls/hr 05/16/19 14:15 11:21 Ancef 2 Gm Premixed Ivpb - IVPB 100 mls/hr Q8H-IV ANGLE Administration Lamotrigine 100 mg 05/15/19 02:19 05/16/19 21:00 Lamictal - PO 100 mg HS ANGLE Administration Ondansetron HCl 4 mg 05/15/19 12:25 05/15/19 17:32 Zofran Injection IVPUSH 4 mg Q8H PRN Administration NAUSEA Potassium Phos/Sodium Phos 1 packet 05/16/19 11:30 05/17/19 11:21 Phos-Nak Packet - PO 05/17/19 22:01 1 packet BID ANGLE Administration ASSESSMENT/PLAN: This is a 44 year old woman with a history of HTN, asthma, anemia, PCOS, bipolar II disorder who presented to the ED with fever, flank pain, urinary frequency. 1. Sepsis secondary to E. coli bacteremia and pyelonephritis - Afebrile, WBC improved - Meropenem changed to cefazolin yesterday - Repeat blood cultures today 2. Acute kidney injury - Resolved - Discontinue IV fluid 3. Anemia, iron deficiency - Start ferrous sulfate - Continue to monitor hemoglobin 4. Right ovarian cyst 5. Bipolar Disorder - Continue Lamictal, Abilify 6. Hyponatremia - Resolved 7. Hypokalemia - Resolved 8. Hypophosphatemia - Resolved Visit type - Emergency Visit Emergency Visit: Yes ED Registration Date: 05/14/19 Care time: The patient presented to the Emergency Department on the above date and was hospitalized for further evaluation of their emergent condition. - New Patient This patient is new to me today: Yes Date on this admission: 05/17/19 - Critical Care Critical Care patient: No - Discharge Referral Referred to [facility] Med P.C.: No
[2019-05-17] MEDS ORDERED: PT OWN MED DRAWER 7, Y5N ONE (20:51)
[2019-05-17] MEDS: ACETAMINOPHEN 500 MG TABLET (FP) PO PRN (21:09)
[2019-05-17] MEDS: lamoTRIgine 25 MG TABLET PO SCH (21:10)
[2019-05-17] MEDS: ARIPiprazole 15 MG TABLET PO SCH (21:13)
[2019-05-18] MEDS: CEFAZOLIN 2 GM/D5W 2 GM/50 ML ML IVPB SCH ×3 (01:28→17:07)
[2019-05-18] MEDS: ACETAMINOPHEN 500 MG TABLET (FP) PO PRN ×2 (05:38→16:32)
[2019-05-18 06:41] LABS: BASO % 0.7 % (0-2.0); EOS % 2.2 % (0-4.5); HEMATOCRIT 25.7 % (32.4-45.2); HEMOGLOBIN 8.3 GM/dL (10.7-15.3); LYMPH % 18.9 % (8-40); MCH 23.5 pg (25.7-33.7); MCHC 32.4 g/dl (32.0-36.0); MEAN CELL VOLUME 72.4 fl (80-96); MEAN PLT VOLUME 8.8 fl (7.5-11.1); MONO % 11.9 % (3.8-10.2); NEUT % 66.3 % (42.8-82.8); PLATELET COUNT 219 K/MM3 (134-434); RBC 3.55 M/mm3 (3.60-5.2); RDW 17.3 % (11.6-15.6); WHITE BLOOD COUNT 8.3 K/mm3 (4.0-10.0)
[2019-05-18 07:01] LABS: BLOOD UREA NITROGEN 5.2 mg/dL (7-18); CREATININE 0.8 mg/dL (0.55-1.3); MAGNESIUM 2.1 mg/dL (1.8-2.4); PHOSPHOROUS 2.4 mg/dL (2.5-4.9); POTASSIUM 3.5 mmol/L (3.5-5.1)
[2019-05-18] MEDS: FERROUS SO4 325 MG TABLET (FP) PO SCH (09:09)
[2019-05-18] MEDS: NAPH,MB-DB/K PH,MBDB POWDER PACKET PO SCH ×2 (09:10→21:24)
--- NOTE | 2019-05-18 09:21 | PN ---
Physical Exam: SUBJECTIVE: Patient seen and examined at the bedside. Overnight fever noted. Patient states that she feels much better. Endorses better appetite. Continue to endorse loose stools. Denied cp, sob, abd pain, n/v, headaches, dizziness, lightheadedness, numbness, tingling, back pain. OBJECTIVE: Vital Signs Period Temp Pulse Resp BP Sys/Sanchez Pulse Ox Last 24 Hr 98.4 F-101.8 F 67-91 17-18 127-150/67-84 100 GENERAL: The patient is awake, alert, and fully oriented, in no acute distress. HEAD: Normal with no signs of trauma. EYES: PERRL, extraocular movements intact, sclera anicteric, conjunctiva clear. ENT: Oropharynx clear without exudates, dry mucous membranes. NECK: Trachea midline, full range of motion, supple. LUNGS: Breath sounds equal, clear to auscultation bilaterally, no wheezes, no crackles, no accessory muscle use. HEART: Regular rate and rhythm, S1, S2 without murmur, rub. ABDOMEN: Soft, nontender, nondistended, normoactive bowel sounds, no guarding, no rebound, no masses. No CVA tenderness. EXTREMITIES: 2+ pulses, warm, well-perfused, no edema. NEUROLOGICAL: Cranial nerves II through XII grossly intact. 5/5 muscle strength bilaterally, upper and lower extremities. PSYCH: Normal mood, normal affect. SKIN: Warm, dry, normal turgor, no rashes or lesions noted Laboratory Results - last 24 hr 05/18/19 05/18/19 06:20 06:20 WBC 8.3 RBC 3.55 L Hgb 8.3 L Hct 25.7 L MCV 72.4 L MCH 23.5 L MCHC 32.4 RDW 17.3 H Plt Count 219 D MPV 8.8 Absolute Neuts (auto) 5.5 Neutrophils % 66.3 Lymphocytes % 18.9 D Monocytes % 11.9 H Eosinophils % 2.2 Basophils % 0.7 Nucleated RBC % 0 Sodium 138 Potassium 3.5 Chloride 107 Carbon Dioxide 25 Anion Gap 7 L BUN 5.2 L Creatinine 0.8 Est GFR (CKD-EPI)AfAm 104.65 Est GFR (CKD-EPI)NonAf 90.30 Random Glucose 101 Calcium 8.0 L Phosphorus 2.4 L Magnesium 2.1 Active Medications Generic Name Dose Route Start Last Admin Trade Name Freq PRN Reason Stop Dose Admin Acetaminophen 1,000 mg 05/15/19 18:26 05/18/19 05:38 Tylenol - PO 1,000 mg Q6H PRN Administration Fever Or Pain Aripiprazole 15 mg 05/15/19 02:30 05/17/19 21:13 Abilify PO 15 mg HS ANGLE Administration Ferrous Sulfate 325 mg 05/18/19 08:00 05/18/19 09:09 Feosol - PO 325 mg DAILY@0800 ANGLE Administration Cefazolin Sodium/Dextrose 2 gm in 50 mls @ 100 mls/hr 05/16/19 14:15 09:09 Ancef 2 Gm Premixed Ivpb - IVPB 100 mls/hr Q8H-IV ANGLE Administration Lamotrigine 100 mg 05/15/19 02:19 05/17/19 21:10 Lamictal - PO 100 mg HS ANGLE Administration Ondansetron HCl 4 mg 05/15/19 12:25 05/15/19 17:32 Zofran Injection IVPUSH 4 mg Q8H PRN Administration NAUSEA Potassium Phos/Sodium Phos 1 packet 05/18/19 10:00 05/18/19 09:10 Phos-Nak Packet - PO 05/19/19 22:01 Not Given BID [facility] ASSESSMENT/PLAN: Laverne Olivo is a 44 year old female with a past medical history of anemia ( requiring transfusions), asthma, PCOS, HTN, Bipolar II admitted for acute pyelonephritis. Sepsis 2/2 Acute Pyelonephritis - febrile, leukocytosis, PARVEZ - (+) UA - CT findings noting mild R hydronephrosis, mild R ureteral dilaation, no calculus - continue cefazolin 2gm q8h as per ID - monitor for fevers, will need at least 24 hours of patient being afebrile before deescalation to PO abx - ID consulted, recs appreciated - Blood Cultures noting Ecoli sethi-sensitive, repeat cultures negative after 24 hours - ucx negative - Urology consulted, no stone identified on CT, supportive measures recommended - continue with hydration PARVEZ likely 2/2 pyelo - improving, today 0.8 - continue hydration, continue to monitor - avoid nephrotoxic agents Anemia - iron studies noting iron deficiency - will require outpatient GI follow up Diarrhea - likely related to antibiotics - obtaining cdiff and lactoferrin R ovarian cyst - as noted on CT abd pelvis, pelvic U/S noting right ovary cyst, no torsion - [employer] f/u outpatient - rpt u/s in 6-10 weeks Bipolar Disorder - on lamictal, Abilify DVT ppx - SCDs FEN - no standing fluids, encourage PO intake - continue to monitor electrolytes and replete as necessary, hypophosphatemia noted and repleted - sodium controlled diet Dispo - continue to monitor on Med-surg Visit type - Emergency Visit Emergency Visit: Yes ED Registration Date: 05/14/19 Care time: The patient presented to the Emergency Department on the above date and was hospitalized for further evaluation of their emergent condition. - New Patient This patient is new to me today: No - Critical Care Critical Care patient: No
--- NOTE | 2019-05-18 09:37 | PN ---
Teaching Attending Note Name of Resident: Jose Juan Ramírez ATTENDING PHYSICIAN STATEMENT I saw and evaluated the patient. I reviewed the resident's note and discussed the case with the resident. I agree with the resident's findings and plan as documented. Seen and examined; please see resident note for further historical information. I personally verified all vang historical information and exam findings. Personally interpreted all imaging and diagnostics and reviewed appropriate consults. I reviewed all labs and vital signs as per resident note and EMR as documented. I agree with the above assessment and plan unless supplemented by myself in the following. Seen and examined, presenting symptoms are improved. The patient is tolerating her antibiotics. She remains in good spirits. Agree with resident data. Did have a fever at 2100 hrs. yesterday so we will continue on IV antibiotics for another 24 hours inpatient. VS, labs, imaging reviewed NAD, AAO, resting comfortably in bed. RRR s1/2 no mgr Normal muscle tone, moves all 5 extremities with normal apparent strength Neck is supple, trachea midline, no nick LN Lungs CTAB with sym expansion NT ND +BS no nick organomegaly CN2-12 wnl; no FND NC AT EOMI PERRLA Flank pain to fist percussion has improved. Normal mood, appropriate behavior, euthymic affect No skin breakdown or rashes noted Pansensitive E. coli growing on blood cultures in 2 out of 2 bottles from 2019. Repeat blood cultures are negative. Assessment and plan: Patient presents with sepsis secondary to E. coli bacteremia due to an acute pyelonephritis. She is improved but had a fever overnight so will remain inpatient for another 24 hours of IV antibiotics, will discuss the case with infectious disease today. If she remains stable and afebrile we can likely transition her to oral antibiotics with good bioavailability such as Levaquin and cross reference for QTC to ensure toleration. If stable, discharge home at that point. Dispo is thus pending clinical improcvement and transition to PO abx. Presents with pyelo; no clear MDRO but given imaging findings assuming we could have potential to deal with MDRO (especially with respect to guidelines for management of infected renal stones). Will have low threshold to broaden and FU with ID. Problems include: -Sepsis secondary to likely urinary source, improved -Acute Pyelonephritis -E. coli bacteremia, on abx. -Bipolar disorder, continue home meds -Multiple food allergies. -Chronic microcytic anemia, likely with acute on chronic component. No IV iron when acutely ill. Followup with PCP. Doesn't technically neeed a scope as 44 and no active bleeding. -Morbid Obesity (BMI >40)
[2019-05-18] MEDS: ARIPiprazole 15 MG TABLET PO SCH (21:24)
[2019-05-18] MEDS: lamoTRIgine 25 MG TABLET PO SCH (21:24)
[2019-05-19] MEDS: CEFAZOLIN 2 GM/D5W 2 GM/50 ML ML IVPB SCH ×2 (01:11→09:02)
[2019-05-19 07:44] LABS: HEMOGLOBIN 7.9 GM/dL (10.7-15.3); LYMPH % 20.2 % (8-40); MCH 23.9 pg (25.7-33.7); MCHC 33.1 g/dl (32.0-36.0); MEAN CELL VOLUME 72.2 fl (80-96); MEAN PLT VOLUME 9.1 fl (7.5-11.1); MONO % 17.8 % (3.8-10.2); PLATELET COUNT 213 K/MM3 (134-434); RBC 3.32 M/mm3 (3.60-5.2); RDW 17.4 % (11.6-15.6); WHITE BLOOD COUNT 8.7 K/mm3 (4.0-10.0)
[2019-05-19] MEDS: FERROUS SO4 325 MG TABLET (FP) PO SCH (09:02)
[2019-05-19] MEDS: NAPH,MB-DB/K PH,MBDB POWDER PACKET PO SCH (09:03)
[2019-05-19 09:16] LABS: BLOOD UREA NITROGEN 5.7 mg/dL (7-18); CALCIUM 7.8 mg/dL (8.5-10.1); CREATININE 0.8 mg/dL (0.55-1.3); MAGNESIUM 1.7 mg/dL (1.8-2.4); PHOSPHOROUS 2.6 mg/dL (2.5-4.9); POTASSIUM 3.6 mmol/L (3.5-5.1)
[2019-05-19] MEDS ORDERED: LISINOPRIL 20 MG TABLET (FP) PO SCH (10:30)
[2019-05-19] MEDS ORDERED: HYDROCHLOROTHIAZIDE 12.5 MG CAPSULE (FP) PO SCH (10:30)
[2019-05-19] MEDS ORDERED: MAGNESIUM SULF 50% (8.12 MEQ/2 ML-1 GM VIAL) IVPB ONE (12:00)
--- NOTE | 2019-05-19 13:12 | PN ---
Physical Exam: SUBJECTIVE: Patient seen and examined OBJECTIVE: Vital Signs Period Temp Pulse Resp BP Sys/Sanchez Pulse Ox Last 24 Hr 98.4 F-100.3 F 77-91 18-20 139-154/69-87 98-98 GENERAL: The patient is awake, alert, and fully oriented, in no acute distress. HEAD: Normal with no signs of trauma. EYES: PERRL, extraocular movements intact, sclera anicteric, conjunctiva clear. No ptosis. ENT: Ears normal, nares patent, oropharynx clear without exudates, moist mucous membranes. NECK: Trachea midline, full range of motion, supple. LUNGS: Breath sounds equal, clear to auscultation bilaterally, no wheezes, no crackles, no accessory muscle use. HEART: Regular rate and rhythm, S1, S2 without murmur, rub or gallop. ABDOMEN: Soft, nontender, nondistended, normoactive bowel sounds, no guarding, no rebound, no hepatosplenomegaly, no masses. EXTREMITIES: 2+ pulses, warm, well-perfused, no edema. NEUROLOGICAL: Cranial nerves II through XII grossly intact. Normal speech, gait not observed. PSYCH: Normal mood, normal affect. SKIN: Warm, dry, normal turgor, no rashes or lesions noted Laboratory Results - last 24 hr 05/18/19 05/19/19 05/19/19 11:22 06:03 06:03 WBC 8.7 RBC 3.32 L Hgb 7.9 L Hct 24.0 L MCV 72.2 L MCH 23.9 L MCHC 33.1 RDW 17.4 H Plt Count 213 MPV 9.1 Absolute Neuts (auto) 5.1 Neutrophils % 59.0 Lymphocytes % 20.2 Monocytes % 17.8 H Eosinophils % 2.0 Basophils % 1.0 Nucleated RBC % 0 Sodium 138 Potassium 3.6 Chloride 106 Carbon Dioxide 26 Anion Gap 6 L BUN 5.7 L Creatinine 0.8 Est GFR (CKD-EPI)AfAm 104.65 Est GFR (CKD-EPI)NonAf 90.30 Random Glucose 96 Calcium 7.8 L Phosphorus 2.6 Magnesium 1.7 L C. trachomatis (MICHAEL) Cancelled N.gonorrhoeae DNA (MICHAEL) Cancelled T. vaginalis (MICHAEL) Cancelled Active Medications Generic Name Dose Route Start Last Admin Trade Name Freq PRN Reason Stop Dose Admin Acetaminophen 1,000 mg 05/15/19 18:26 05/18/19 16:32 Tylenol - PO 1,000 mg Q6H PRN Administration Fever Or Pain Aripiprazole 15 mg 05/15/19 02:30 05/18/19 21:24 Abilify PO 15 mg HS ANGLE Administration Ferrous Sulfate 325 mg 05/18/19 08:00 05/19/19 09:02 Feosol - PO 325 mg DAILY@0800 ANGLE Administration Hydrochlorothiazide 12.5 mg 05/19/19 10:30 05/19/19 10:54 Hctz - PO Not Given DAILY ANGLE Cefazolin Sodium/Dextrose 2 gm in 50 mls @ 100 mls/hr 05/16/19 14:15 09:02 Ancef 2 Gm Premixed Ivpb - IVPB 100 mls/hr Q8H-IV ANGLE Administration Lamotrigine 100 mg 05/15/19 02:19 05/18/19 21:24 Lamictal - PO 100 mg HS ANGLE Administration Lisinopril 20 mg 05/19/19 10:30 05/19/19 10:54 Prinivil PO Not Given DAILY ANGLE Ondansetron HCl 4 mg 05/15/19 12:25 05/15/19 17:32 Zofran Injection IVPUSH 4 mg Q8H PRN Administration NAUSEA Potassium Phos/Sodium Phos 1 packet 05/18/19 10:00 05/19/19 09:03 Phos-Nak Packet - PO 05/19/19 22:01 Not Given BID ANGLE ASSESSMENT/PLAN: ATTENDING PHYSICIAN STATEMENT I saw and evaluated the patient. I reviewed the resident's note and discussed the case with the resident. I agree with the resident's findings and plan as documented. SUBJECTIVE: OBJECTIVE: ASSESSMENT AND PLAN:
[2019-05-19] MEDS ORDERED: HYDROCHLOROTHIAZIDE 12.5 MG CAPSULE (FP) PO ONE (13:38)
[2019-05-19 13:46] VITALS: BP 172/102; PULSE 84; TEMP 98.2
--- NOTE | 2019-05-19 15:21 | PN ---
Progress Note, Physician History of Present Illness: AWAKE IN BED NO COMPLAINTS NO C/O DYSURIA NO FLANK PAIN - Current Medication List Current Medications: Active Medications Acetaminophen (Tylenol -) 1,000 mg PO Q6H PRN PRN Reason: Fever Or Pain Last Admin: 05/18/19 16:32 Dose: 1,000 mg Aripiprazole (Abilify) 15 mg PO [facility] Last Admin: 05/18/19 21:24 Dose: 15 mg Ferrous Sulfate (Feosol -) 325 mg PO DAILY@0800 [facility] Last Admin: 05/19/19 09:02 Dose: 325 mg Hydrochlorothiazide (Hctz -) 12.5 mg PO DAILY [facility] Last Admin: 05/19/19 10:54 Dose: Not Given Cefazolin Sodium/Dextrose (Ancef 2 Gm Premixed Ivpb -) 2 gm in 50 mls @ 100 mls /hr IVPB Q8H-IV [facility] Last Admin: 05/19/19 09:02 Dose: 100 mls/hr Lamotrigine (Lamictal -) 100 mg PO [facility] Last Admin: 05/18/19 21:24 Dose: 100 mg Lisinopril (Prinivil) 20 mg PO DAILY [facility] Last Admin: 05/19/19 10:54 Dose: Not Given Ondansetron HCl (Zofran Injection) 4 mg IVPUSH Q8H PRN PRN Reason: NAUSEA Last Admin: 05/15/19 17:32 Dose: 4 mg Potassium Phos/Sodium Phos (Phos-Nak Packet -) 1 packet PO BID [facility] Stop: 05/19/19 22:01 Last Admin: 05/19/19 09:03 Dose: Not Given - Objective Vital Signs: Vital Signs Temperature 98.2 F 05/19/19 13:43 Pulse Rate 84 05/19/19 13:43 Respiratory Rate 20 05/19/19 13:43 Blood Pressure 172/102 H 05/19/19 13:43 O2 Sat by Pulse Oximetry (%) 98 05/19/19 09:00 Constitutional: Yes: No Distress Eyes: Yes: Conjunctiva Clear Cardiovascular: Yes: Regular Rate and Rhythm, S1, S2 Respiratory: Yes: CTA Bilaterally Gastrointestinal: Yes: Normal Bowel Sounds, Soft, Abdomen, Obese Genitourinary: No: CVA Tenderness - Left, CVA Tenderness - Right Edema: No Labs: CBC, BMP 05/19/19 06:03 05/19/19 06:03 INR, PTT INR 1.30 (0.83-1.09) H 05/14/19 12:30 Assessment/Plan ACUTE PYELONEPHRITIS IMPROVED E COLI BACTEREMIA SECONDARY TO SOURCE LEUKOCYTOSIS RESOLVED AZOTEMIA IMPROVED SUBSTITUTE LEVAQUIN 750MG PO QD X 8DAYS
[2019-05-19] MEDS ORDERED: levoFLOXacin 750 MG TABLET PO SCH (15:30)
--- NOTE | 2019-05-19 17:12 | PN ---
Teaching Attending Note Name of Resident: Victor Hugo Marin ATTENDING PHYSICIAN STATEMENT I saw and evaluated the patient. I reviewed the resident's note and discussed the case with the resident. I agree with the resident's findings and plan as documented. Seen and examined; please see resident note for further historical information. I personally verified all vang historical information and exam findings. Personally interpreted all imaging and diagnostics and reviewed appropriate consults. I reviewed all labs and vital signs as per resident note and EMR as documented. I agree with the above assessment and plan unless supplemented by myself in the following. Discussed case with infectious disease and patient may be continued on Levaquin for 8 more days for her infection. She feels well, has resolution of presenting symptoms, and would like to return home. Discussed when and why to return to the emergency room and she does verbalize an understanding with this. She has no new complaints today and is otherwise ready to go home. I agree with follow-ups as outlined in the resident discharge plan. 10 item review of systems completed and is negative aside from as discussed in the subjective data in my own/the resident documentation. VS, labs, imaging reviewed NAD, AAO, resting comfortably in bed. RRR s1/2 no mgr Normal muscle tone, moves all 5 extremities with normal apparent strength Neck is supple, trachea midline, no nick LN Lungs CTAB with sym expansion NT ND +BS no nick organomegaly CN2-12 wnl; no FND NC AT EOMI PERRLA Flank pain to palpation is completely resolved. Normal mood, appropriate behavior, euthymic affect No skin breakdown or rashes noted Problems include: Problems include: -Sepsis secondary to likely urinary source, improved -Acute Pyelonephritis -E. coli bacteremia, on abx. -Bipolar disorder, continue home meds -Multiple food allergies. -Chronic microcytic anemia, likely with acute on chronic component. No IV iron when acutely ill. Followup with PCP. Doesn't technically neeed a scope as 44 and no active bleeding. -Morbid Obesity (BMI >40) Disposition to home with followups, diet, activity as indicated.
--- NOTE | 2019-05-19 17:29 | DS ---
Physical Exam: SUBJECTIVE: Patient seen and examined. Pt is asymptomatic and afebrile. No overnight event or issues. Denies f/c/n/v/d/sob, chest pain. OBJECTIVE: Vital Signs Period Temp Pulse Resp BP Sys/Sanchez Pulse Ox Last 24 Hr 98.2 F-99.6 F 77-89 - 139-172/78-102 98-98 PHYSICAL EXAM GENERAL: The patient is awake, alert, and fully oriented, in no acute distress. HEAD: Normal with no signs of trauma. EYES: PERRL, ENT: moist mucous membranes. NECK: Trachea midline, full range of motion, supple. LUNGS: Breath sounds equal, clear to auscultation bilaterally, no wheezes, no crackles, no accessory muscle use. HEART: Regular rate and rhythm, S1, S2 without murmur, rub or gallop. ABDOMEN: Soft, nontender, nondistended, normoactive bowel sounds, no guarding, no rebound, no hepatosplenomegaly, no masses. SKIN: Warm, dry, normal turgor, n LABS Laboratory Results - last 24 hr 05/18/19 05/19/19 05/19/19 11:22 06:03 06:03 WBC 8.7 RBC 3.32 L Hgb 7.9 L Hct 24.0 L MCV 72.2 L MCH 23.9 L MCHC 33.1 RDW 17.4 H Plt Count 213 MPV 9.1 Absolute Neuts (auto) 5.1 Neutrophils % 59.0 Lymphocytes % 20.2 Monocytes % 17.8 H Eosinophils % 2.0 Basophils % 1.0 Nucleated RBC % 0 Sodium 138 Potassium 3.6 Chloride 106 Carbon Dioxide 26 Anion Gap 6 L BUN 5.7 L Creatinine 0.8 Est GFR (CKD-EPI)AfAm 104.65 Est GFR (CKD-EPI)NonAf 90.30 Random Glucose 96 Calcium 7.8 L Phosphorus 2.6 Magnesium 1.7 L C. trachomatis (MICHAEL) Cancelled Hep C Ab Diagnostic <0.1 HIV 1&2 Ag/Ab, 4th Gen Non reactive N.gonorrhoeae DNA (MICHAEL) Cancelled T. vaginalis (MICHAEL) Cancelled Current Medications Acetaminophen (Tylenol -) 1,000 mg PO Q6H PRN PRN Reason: Fever Or Pain Last Admin: 05/18/19 16:32 Dose: 1,000 mg Aripiprazole (Abilify) 15 mg PO [facility] Last Admin: 05/18/19 21:24 Dose: 15 mg Ferrous Sulfate (Feosol -) 325 mg PO DAILY@0800 [facility] Last Admin: 05/19/19 09:02 Dose: 325 mg Hydrochlorothiazide (Hctz -) 12.5 mg PO DAILY [facility] Last Admin: 05/19/19 10:54 Dose: Not Given Lamotrigine (Lamictal -) 100 mg PO [facility] Last Admin: 05/18/19 21:24 Dose: 100 mg Levofloxacin (Levaquin) 750 mg PO DAILY@0600 [facility] Last Admin: 05/19/19 16:27 Dose: 750 mg Lisinopril (Prinivil) 20 mg PO DAILY [facility] Last Admin: 05/19/19 10:54 Dose: Not Given Ondansetron HCl (Zofran Injection) 4 mg IVPUSH Q8H PRN PRN Reason: NAUSEA Last Admin: 05/15/19 17:32 Dose: 4 mg Potassium Phos/Sodium Phos (Phos-Nak Packet -) 1 packet PO BID [facility] Stop: 05/19/19 22:01 Last Admin: 05/19/19 09:03 Dose: Not Given Microbiology 05/17/19 14:42 Blood - Peripheral Venous Blood Culture - Preliminary NO GROWTH OBTAINED AFTER 48 HOURS, INCUBATION TO CONTINUE FOR 3 DAYS. 05/17/19 14:35 Blood - Peripheral Venous Blood Culture - Preliminary NO GROWTH OBTAINED AFTER 48 HOURS, INCUBATION TO CONTINUE FOR 3 DAYS. 05/14/19 12:30 Blood - Peripheral Venous Blood Culture - Final Escherichia Coli 05/14/19 12:30 Blood - Peripheral Venous Blood Culture - Final Escherichia Coli 05/15/19 06:15 Urine - Urine Clean Catch Urine Culture - Final NO GROWTH OBTAINED HOSPITAL COURSE: Laverne Olivo is a 44 year old female with a past medical history of anemia ( requiring transfusions), asthma, PCOS, HTN, Bipolar II admitted for E-coli bacteremia 2/2 to acute pyelonephritis. Upon admission she was febrile, had leukocytosis, PARVEZ and was UA+. She was given Rocephin at the time with zosyn. She was then switched Cefazolin by ID. CT a/p showed Mild right hydronephrosis is seen. There is also possible minimal right ureteral dilatation. No definite current urinary tract calculus is noted - ? possible recently passed calculus ( versus less likely a nonradiopaque ureteral calculus). The findings may also be on the basis of coexisting acute pyelonephritis. If there is ongoing symptomatology follow-up CT is suggested. A 4.5 cm right ovarian cyst is noted. There also appears to be a 6.5 x 3 cm separate right adnexal cyst or dilated fallopian tube. Sonographic correlation is suggested, nonemergent unless otherwise clinically indicated. Her symptoms improved on abx and she was switched to PO Levaquin and discharged home. CT abdomen/ Pelvis: Impression: Mild right hydronephrosis is seen. There is also possible minimal right ureteral dilatation. No definite current urinary tract calculus is noted - ? possible recently passed calculus (versus less likely a nonradiopaque ureteral calculus). The findings may also be on the basis of coexisting acute pyelonephritis. If there is ongoing symptomatology follow-up CT is suggested. A 4.5 cm right ovarian cyst is noted. There also appears to be a 6.5 x 3 cm separate right adnexal cyst or dilated fallopian tube. Sonographic correlation is suggested, nonemergent unless otherwise clinically indicated. RUQ u/s : Minimal right hydronephrosis, new since 11/07/18. Hepatomegaly. Coarse liver echotexture, possibly steatosis. Cholecystectomy appearing since prior exam. Unremarkable visualized aorta and pancreas. Normal common duct diameter, 6 mm. Pelvic U/S, transvaginal u/s: 5.1 cm cyst right ovary, consider followup ultrasound in 6 or 10 weeks to assess for resolution. 1.8 cm dominant follicle left ovary. No ovarian torsion bilaterally. Color flow with appropriate arterial and/or venous waveforms. Dilated right adnexal tubular structure, probably hydrosalpinx. Small physiologic free fluid cul-de-sac. 2.5 cm uterine fibroid. Endometrial stripe complex 6 mm thick. Unremarkable visualized portion of bladder Date of Admission:05/14/19 Date of Discharge: 05/19/19 Minutes to complete discharge: 40 Discharge Summary Problems reviewed: Yes Reason For Visit: PYELONEPHRITIS Condition: Improved - Instructions Diet, Activity, Other Instructions: You were admitted to the hospital for an infection of your kidneys. While in the hospital, we evaluated you with lab work, blood work, and imaging including x rays of your chest and CAT scan of your abdomen. We found that your symptoms were caused by a urinary tract infection that extended into your kidneys. We treated you with medications and your symptoms improved. To complete the treatment of you symptoms, please take the following medications Levaquin 500 daily Please take all your medications as prescribed Please follow up with your primary care physician within 1 week Return to the emergency room, if you experience worsening of your symptoms, chest pain, abdominal pain, bloody urine or any worsening of your condition. Referrals: Edgar Sullivan MD [Staff Physician] - 2 Weeks Odilon Culver MD [Staff Physician] - (2-3 days) Babs Clark MD [Primary Care Provider] - 1 Week Disposition: HOME - Home Medications Comprehensive Discharge Medication List: Ambulatory Orders Aripiprazole [Abilify] 15 mg PO HS 01/20/17 Dextroamphetamine/Amphetamine [Adderall Xr 20 mg Capsule] 30 mg PO DAILY Lamotrigine [Lamictal] 100 mg PO HS 11/07/18 Lisinopril/Hydrochlorothiazide [Lisinopril-Hctz 20-12.5 mg Tab] 1 each PO DAILY 05/15/19 Tranexamic Acid 650 mg PO PRN 05/15/19 levoFLOXacin [Levaquin] 750 mg PO DAILY@0600 #8 tab 05/19/19 This patient is new to me today: Yes Date on this admission: 05/19/19 Emergency Visit: Yes ED Registration Date: 05/14/19 Care time: The patient presented to the Emergency Department on the above date and was hospitalized for further evaluation of their emergent condition. Critical Care patient: No - Discharge Referral Referred to [facility] No ATTENDING PHYSICIAN STATEMENT I saw and evaluated the patient. I reviewed the resident's note and discussed the case with the resident. I agree with the resident's findings and plan as documented. SUBJECTIVE: OBJECTIVE: ASSESSMENT AND PLAN:
== END 2019-05-19 18:07 | disposition home or self-care (01) | DRG 872 ==
LOC: JER 11:37 → JERBED 18:19 → J7W 05-15 00:53
PROVIDERS: ADMIT Internal Medicine; ATTEND Internal Medicine
DX: A41.50 Gram-negative sepsis, unspecified (principal); N17.9 Acute kidney failure, unspecified; N13.30 Unspecified hydronephrosis; N10 Acute pyelonephritis; E87.1 Hypo-osmolality and hyponatremia; J45.909 Unspecified asthma, uncomplicated; I10 Essential (primary) hypertension; F31.9 Bipolar disorder, unspecified; N83.201 Unspecified ovarian cyst, right side; Z68.39 Body mass index [BMI] 39.0-39.9, adult; E87.6 Hypokalemia; E83.39 Other disorders of phosphorus metabolism; D50.9 Iron deficiency anemia, unspecified; E66.01 Morbid (severe) obesity due to excess calories; R16.0 Hepatomegaly, not elsewhere classified
CPT/HCPCS: 36415; 71045-TC-FY; 74176-TC; 76705-TC; 76830-TC; 76856-TC; 80048; 80053; 81003; 82436; 82728; 83540; 83550; 83605; 83735; 84100; 84105; 84133; 84300; 84443; 84484; 84703; 85025; 85044; 85610; 85730; 86593; 86632; 86803; 87040; 87086; 87186; 87389; 87491; 87591; 87661; 87804; 93005; 93010; 97116-GP; 97161-GP; 99284-25; J0131; J7030

== ENCOUNTER 2020-02-02 22:32 | Emergency (ER) | payer OTHER ==
[2020-02-02 22:45] VITALS: BMI 40.7
--- OUTSIDE RECORDS SUMMARY | 2020-02-02 22:46 | XMS ---
:1975 Author Organization [facility] Care Team Providers Name Role Phone Enrique Morgan MD Unavailable Unavailable Migel Burnett MD Unavailable Unavailable Layo Beltre Unavailable Unavailable Layo Beltre Unavailable Unavailable Layo Beltre Unavailable Unavailable Hai Morelos MD Unavailable Unavailable Re-disclosure Warning The records that you are about to access may contain information from federally- assisted alcohol or drug abuse programs. If such information is present, then the following federally mandated warning applies: This information has been disclosed to you from records protected by federal confidentiality rules (42 CFR part 2). The federal rules prohibit you from making any further disclosure of this information unless further disclosure is expressly permitted by the written consent of the person to whom it pertains or as otherwise permitted by 42 CFR part 2. A general authorization for the release of medical or other information is NOT sufficient for this purpose. The Federal rules restrict any use of the information to criminally investigate or prosecute any alcohol or drug abuse patient.The records that you are about to access may contain highly sensitive health information, the redisclosure of which is protected by Article 27-F of the [facility] Public Health law. If you continue you may haveaccess to information: Regarding HIV / AIDS; Provided by facilities licensed or operated by the [facility] Office of Mental Health; or Provided by the [facility] Office for People With Developmental Disabilities. If such information is present, then the following [facility] mandated warning applies: This information has been disclosed to you from confidential records which are protected by state law. State law prohibits you from making any further disclosure of this information without the specific written consent of the person to whom it pertains, or as otherwise permitted by law. Any unauthorized further disclosure in violation of state law may result in a fine or snf sentence or both. A general authorization for the release of medical or other information is NOT sufficient authorization for further disclosure. Allergies and Adverse Reactions Type Description Substance Reaction Status Data Source(s ) Food allergy walnut walnut Itching [facility] Miscellaneous latex latex Itching [facility] allergy Hospital Food allergy banana banana Itching [facility] Food allergy peanut peanut UNKNOWN [facility] Drug allergy Sulfa Sulfa UNKNOWN [place] (Sulfonamide (Sulfonamide Hospital Antibiotics) Antibiotics) Encounters Encounter Providers Location Date Indications Data Source(s ) Outpatient Attender: Layo 01/09/2019 [place] [place] [facility] ZemonConsultant: 09:45:00 AM [facility] Hai Morelos MD EDT - 01/09/2019 09:25:00 AM EDT [place] Patient discharged. Inpatient Attender: Migel Burnett 07/05/2018 04:53:00 PM [place] [place] MDAdmitter: Migel [facility] - 07/07/2018 [facility] Lex [place] 01:31:00 PM EST [facility] Outpatient Attender: Migel 06/28/2018 09:33:00 PRE OP UT ERINE Kobi Burnett MD [facility] Hospital PRE OP UTERINE [facility] Outpatient Attender: Enrique 05/29/2018 10:32:00 INFERTILIT Y DAY Kobi Morgan MD [facility] 10TH Hospital INFERTILITY DAY 10TH Functional Status Medications Medication Brand Start Product Dose Route Administrative Pharmacy [facility] Indications Reaction Description Data Name Date Form Instructions Instructions Source(s) Acetaminoph Oxycod 01/09/ TABLET {Cap ORAL complet [facility] [place] 325 MG / one/Ac 2019 sophia} ed [place] [facility] Oxycodone etamin 09:20: Hospit al Hydrochlori ophen 00 AM de 5 MG EDT Oral Tablet [Percocet] Oxycodone/A cetaminophe n Ibuprofen Ibupro 07/06/ TABLET 600 ORAL complet [place] 600 MG Oral fen 2019 mg ed [place] Tablet 04:30: Hospital 00 PM EST Ibuprofen Ibupro 03/02/ TABLET 600 complet Every 6 [facility] 600 MG Oral fen 2019 mg ed Hours as Plai ns Tablet (Motri 12:00: needed for Hos pital Ibuprofen n 00 AM For (Motrin Tablet EST Abdominal Tablet*) *) 600 Pain 600 Mg Tab Mg Tab Acetaminoph Oxycod 07/05/ TABLET 1 ORAL complet [facility] [place] 325 MG / 2018 {Caps ed Plain [facility] Oxycodone etamin 05:00: ule} Hospit al Hydrochlori ophen 00 PM de 5 MG EST Oral Tablet [Percocet] Oxycodone/A cetaminophe n Acetaminoph Oxycod 07/05/ TABLET 1 complet Ever y 4 [facility] en 325 MG / 2018 {Caps ed Hours as [place] Oxycodone etamin 12:00: ule} needed for Hospital Hydrochlori ophen 00 AM For de 5 MG ([place] EST Abdominal Oral Tablet cet Pain [Percocet] 5-325 Oxycodone/A Mg cetaminophe Tablet n (Percocet *) 5 5-325 Mg Mg-325 Tablet*) 5 Mg Mg-325 Mg Tablet Tablet Multivitami TABLET 1 ORAL complet Whi te n,Therapeut {Caps ed [place] ic ule} Hospital aripiprazol Aripip TABLET 30 mg ORAL complet White e 30 MG razole ed [place] Oral Tablet Hospital [Abilify] Aripiprazol e 24 HR Amphet SUSTAINE 20 mg ORAL complet Whit e Amphetamine amine D ed [place] aspartate 5 Aspart RELEASE Hos pital MG / ate/Am CAPSULE Amphetamine phetam Sulfate 5 Sulf MG / Dextroamphe tamine saccharate 5 MG / Dextroamphe tamine Sulfate 5 MG Extended Release Oral Capsule [Adderall] Amphetamine Aspartate/A mphetam Sulf Hydrochloro Hctz/L TABLET 1 ORAL complet W [place] thiazide isinop {Caps ed [place] 12.5 MG / ril ule} Hospital Lisinopril 20 MG Oral Tablet [Zestoretic ] Hctz/Lisino pril Amphetamine Amphet TABLET 25 mg ORAL complet [place] aspartate 5 amine ed [place] MG / Aspart Hospital Amphetamine ate/Am Sulfate 5 phetam MG / Sulf Dextroamphe tamine saccharate 5 MG / Dextroamphe tamine Sulfate 5 MG Oral Tablet [Adderall] Amphetamine Aspartate/A mphetam Sulf Hydrochloro Hctz/L TABLET 1 complet Daily [facility] thiazide isinop {[facility] 12.5 MG / ril ule} Hospital Lisinopril (Zesto 20 MG Oral retic Tablet 20-12. [Zestoretic 5 Mg ] Tablet Hctz/Lisino *) 20 pril Mg-12. (Zestoretic 5 Mg 20-12.5 Mg Tablet Tablet*) 20 Mg-12.5 Mg Tablet lamotrigine Lamotr TABLET 100 ORAL complet [place] 100 MG Oral igine mg ed [place] Tablet Hospital [Lamictal] Lamotrigine [facility] , complet [facility] 24 HR Amphet SUSTAINE 20 mg complet Daily Whi te Amphetamine amine D [facility] aspartate 5 Aspart RELEASE Hos pital MG / ate/Am CAPSULE Amphetamine phetam Sulfate 5 Sulf MG / (Adder Dextroamphe all Xr tamine 20 Mg saccharate Capsul 5 MG / e Sa) Dextroamphe 20 Mg tamine Cap.sr Sulfate 5 .24h, MG Extended 20 Mg Release Oral Oral Capsule [Adderall] Amphetamine Aspartate/A mphetam Sulf (Adderall Xr 20 Mg Capsule Sa) 20 Mg Cap.sr.24h, 20 Mg Oral Albuterol AEROSOL, 1 complet Every 4 [facility] (Proventil SPRAY ed Hours as Plai ns Hfa Inhaler needed for Ho gabriela Mdi*) 90 For Mcg Bronchial Hfa.aer.ad Congestion Diclofenac Diclof TABLET, 100 ORAL complet W yany Sodium 75 enac DELAYED mg [place] MG Delayed Sodium RELEASE Hosp ital Release Oral Tablet [place] complet [facility] Albuterol AEROSOL, 1 RESPIR complet W [place]any SPRAY ATORY [facility] (INHAL Hospital ATION) aripiprazol Aripip TABLET 15 mg ORAL complet [facility] e 15 MG razole ed [place] Oral Tablet Hospital [Abilify] Aripiprazol e aripiprazol Aripip TABLET 30 mg complet Daily White e 30 MG razole [facility] Oral Tablet (Abili Hospit al [Abilify] fy Aripiprazol Tablet e (Abilify *) 30 Tablet*) 30 Mg Mg Tab, 30 Tab, Mg Oral 30 Mg Oral Multivitami TABLET 1 complet Daily ite n,Therapeut {[facility] ic ule} Hospital (Theragran Vitamins Tablets*) 1 Each Tablet Insurance Providers Payer name Policy type Policy ID Covered Covered democrat's Policy P mireya / Coverage democrat ID relationship to Workman Inf ormation type workman JABIER [id number] SP [id number] HEALTHCARE HMO JABIER [id number] PT [id number] 101 HEALTHCARE HMO [facility] [id number] [place] [id number] PLAN HMO Problems, Conditions, and Diagnoses Code Display Name Description Problem Type Effective Dates Data Source(s) D57.3 Sickle-cell trait D57.3 Diagnosis 07/05/2018 [place] 04:53:00 PM EST Hospital F31.9 Bipolar disorder, F31.9 Diagnosis 07/05/2018 [place] unspecified 04:53:00 PM EST Hospital K21.9 Gastro-esophageal K21.9 Diagnosis 07/05/2018 [place] reflux disease 04:53:00 PM EST Hospi jose luis without esophagitis J45.909 Unspecified asthma, J45.909 Diagnosis 07/05/2018 [place] uncomplicated 04:53:00 PM EST Hospit al I10 Essential (primary) I10 Diagnosis 07/05/2018 [place] hypertension 04:53:00 PM EST Hospita l Z91.040 Latex allergy status Z91.040 Diagnosis 07/05/2018 [place] 04:53:00 PM EST Hospital Z88.2 Allergy status to Z88.2 Diagnosis 07/05/2018 [place] sulfonamides status 04:53:00 PM EST Hospital N83.202 Unspecified ovarian N83.202 Diagnosis 07/05/2018 [place] cyst, left side 04:53:00 PM EST Hosp ital 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 N70.11 Diagnosis 07/05/2018 [place] 04:53:00 PM EST Hospital D25.9 Leiomyoma of uterus, D25.9 Diagnosis 06/28/2018 Whit [facility] [place] unspecified 09:33:00 AM EST Hospital Z01.812 Encounter for Z01.812 Diagnosis 06/28/2018 [place] preprocedural 09:33:00 AM EST Hospit al laboratory examination N97.9 Female infertility, N97.9 Diagnosis 05/29/2018 [place] unspecified 10:32:00 AM EST Hospital Surgeries/Procedures Procedure Description Date Indications Data Source(s) Oxygen therapy 01/09/2019 [place] (procedure) 12:00:00 AM Hospital EDT Myomectomy, Myomectomy, 07/05/2018 [place] robot-assisted robot-assisted 12:00:00 AM Hospital EST Results ID Date Data Source [id number] 08/13/2019 12:00:00 AM EDT [facility] Name Value Range Interpretation Code Description Data Rashida rce(s) Supporting Document(s ) 2018-nCoV NY[facility] RNA XXX MICHAEL+probe- Imp [facility] and reported by [facility]. ID Date Data Source [id number] 01/09/2019 08:59:00 AM EDT [facility] Name Value Range Interpretation Description Data Sup porting Code Source(s) Document(s ) Choriogonadotropin NEGATIVE [place] ( test) [place] [Presence] in Urine Hospital ID Date Data Source [id number] 07/05/2018 05:59:00 PM [facility] Assisted Living Coordinator: MENDY MAHMOOD Name Value Range Interpretation Description Data Sup porting Code Source(s) Document(s ) Glucose 146 74-106 Above high normal METER GLUCOSE [facility] ains [Mass/volume] mg/dL Hospital in Capillary blood by Glucometer ID Date Data Source [id number] 06/28/2018 09:47:00 AM [facility] Name Value Range Interpretation Code Description Data Supporting Source(s) Document(s ) NEGATIVE NEGATIVE HCG QUALITATIVE [facility] ID Date Data Source [id number] 06/28/2018 09:47:00 AM [facility] Name Value Range Interpretation Code Description Data Rashida rce(s) Supporting Document(s ) 06/28/2018 ARRIVAL TIME [place] 09:11 Hospital Procedure Social History Code Duration Value Status Description Data Source(s ) Smoking Unknown if ever completed Unknown if ever [facility] [place] smoked smoked Hospital Smoking Unknown if ever completed Unknown if ever [facility] [place] smoked smoked Hospital Vital Signs ID Date Data Source UNK Name Value Range Interpretation Code Description Data Source(s) Diastolic blood 85 mm[Hg] 85 mm[Hg] [facility] ins pressure Hospital Systolic blood 151 mm[Hg] 151 mm[Hg] [facility] ns pressure Hospital Respiratory rate 18 /min 18 /min [facility] Heart rate 76 /min 76 /min [facility] Body temperature 36.29665 [place] 36.68283 [facility] Body temperature 97.6 [degF] 97.6 [degF] [facility] Body mass index 40.2 kg/m2 40.2 kg/m2 [facility] ins (BMI) [Ratio] Hospital Body weight 257 [lb_av] 257 [lb_av] [facility] Patient Treatment Plan of Care Planned Activity Planned Date Details Description Data Source (s) Ibuprofen 600 MG Oral Tablet 07/06/2018 [place] 12:00:00 AM [facility] Acetaminophen 325 MG / 07/05/2018 [place] Oxycodone Hydrochloride 5 MG 12:00:00 AM [facility] Oral Tablet [Percocet] Iron Iv , [facility] aripiprazole 30 MG Oral [facility] [employer] Tablet [Abilify] Hospital 24 HR Amphetamine aspartate 5 [place] MG / Amphetamine Sulfate 5 MG Hospital / Dextroamphetamine saccharate 5 MG / Dextroamphetamine Sulfate 5 MG Extended Release Oral Capsule [Adderall] Multivitamin,Therapeutic [facility] (Theragran Vitamins Tablets*) [facility] 1 Each Tablet Hydrochlorothiazide 12.5 MG / [place] Lisinopril 20 MG Oral Tablet [facility] [Zestoretic] Albuterol (Proventil Hfa [facility] Inhaler Mdi*) 90 Mcg Hospita l Hfa.aer.ad
[2020-02-02] MEDS ORDERED: SODIUM CHLORIDE 1,000 ML IV STA (23:03)
[2020-02-02] MEDS ORDERED: ACETAMINOPHEN 1000 MG/100 ML VIAL (NON FORMULARY) IVPB ONE (23:03)
--- NOTE | 2020-02-02 23:08 | PDOC ---
History of Present Illness - General Chief Complaint: Urinary Problem Stated Complaint: PAIN Time Seen by Provider: 02/02/20 23:02 History Source: Patient - History of Present Illness Initial Comments: 02/03/20 00:37 44-year-old female complaining of right flank pain, suprapubic pain and dysuria for the last 3 days. Patient reports slight nausea denies fever/chills, nausea abdominal pain, diarrhea. Patient reports that she was admitted in the hospital for urosepsis earlier this year. Past medical history of pyelonephritis, bipolar disease, hypertension. cholecystectomy 02/03/20 01:03 Past History - Medical History Allergies/Adverse Reactions: Allergies Allergy/AdvReac Type Severity Reaction Status Date / Time Sulfa (Sulfonamide Allergy Severe Vomiting Verified 11/07/18 03:52 Antibiotics) latex Allergy Mild Hives Verified 11/07/18 03:51 kiwi Allergy Verified 05/16/19 12:14 peanut Allergy Verified 05/16/19 12:14 walnut Allergy Verified 05/16/19 12:14 nuts Allergy Severe Difficulty Uncoded 11/07/18 03:51 Breathing bananas Allergy Mild Itching Uncoded 11/07/18 03:51 Home Medications: Ambulatory Orders Aripiprazole [Abilify] 15 mg PO HS 01/20/17 Dextroamphetamine/Amphetamine [Adderall Xr 20 mg Capsule] 30 mg PO DAILY 12/08/17 Lamotrigine [Lamictal] 100 mg PO HS 11/07/18 Lisinopril/Hydrochlorothiazide [Lisinopril-Hctz 20-12.5 mg Tab] 1 each PO DAILY 05/15/19 Tranexamic Acid 650 mg PO PRN 05/15/19 levoFLOXacin [Levaquin] 750 mg PO DAILY@0600 #8 tab 05/19/19 Anemia: No Asthma: Yes Cancer: No Cardiac Disorders: No CVA: No COPD: No DVT: No Dementia: No Diabetes: No Dialysis: No GI Disorders: No Disorders: No HTN: Yes Hypercholesterolemia: No Kidney Stones: No Liver Disease: No Psychiatric Problems: Yes (bipolar) Seizures: No Thyroid Disease: No Lung CA: No - Surgical History Cholecystectomy: Yes - Reproductive History Is Patient Now?: No - Immunization History Immunization Up to Date: Yes - Psycho-Social/Smoking History Smoking Status: No Smoking History: Never smoked Have you smoked in the past 12 months: No Number of Cigarettes Smoked Daily: 0 - Substance Abuse Hx (Audit-C & DAST Scrn) How often the patient has a drink containing alcohol: Monthly or less Score: In Men: 4 or > Positive; In Women: 3 or > Positive: 1 Screen Result (Pos requires Nsg. Audit-10AR): Negative Review of Systems - Review of Systems Able to Perform ROS?: Yes Is the patient limited Indonesian proficient: No Constitutional: No: Symptoms Reported, See HPI, Chills, Diaphoresis, Fever, Loss of Appetite, Malaise, Night Sweats, Weakness, Weight Stable, Unintentional Wgt. Loss, Unexplained wgt Loss, Other ABD/GI: Yes: Nausea : Yes: Dysuria, Frequency, Flank Pain *Physical Exam - Vital Signs Last Vital Signs Temp Pulse Resp BP Pulse Ox 97.7 F 97 H 20 159/100 99 02/02/20 22:44 02/02/20 22:44 02/02/20 22:44 02/02/20 22:44 02/02/20 22:44 - Physical Exam General Appearance: Yes: Appropriately Dressed Respiratory/Chest: positive: Lungs Clear, Normal Breath Sounds Cardiovascular: positive: Regular Rhythm, Regular Rate Gastrointestinal/Abdominal: positive: Normal Bowel Sounds, Soft. negative: Tender Musculoskeletal: positive: CVA Tenderness (R). negative: CVA Tenderness (L) Extremity: positive: Normal Capillary Refill, Normal Inspection, Normal Range of Motion Integumentary: positive: Normal Color, Dry, Warm Neurologic: positive: Fully Oriented, Alert, Normal Mood/Affect ED Treatment Course - LABORATORY CBC & Chemistry Diagram: 02/02/20 23:40 02/02/20 23:40 ED Progress Note - Progress Note Progress Note: 02/03/20 02:07 A: abdominal pain P: CBC CMP lipase UA Medical Decision Making - Medical Decision Making 02/03/20 01:03 patient reports feeling better. has epigastric tenderness now. 02/03/20 02:07 patient has no abdominal pain. will d/c home. Discharge - Discharge Information Problems reviewed: Yes Clinical Impression/Diagnosis: Abdominal pain Qualifiers: Abdominal location: generalized Qualified Code(s): R10.84 - Generalized abdominal pain Disposition: HOME - Follow up/Referral Referrals: Babs Clark MD [Primary Care Provider] - Call tomorrow Osman Fine MD [Staff Physician] - - Patient Discharge Instructions Patient Printed Discharge Instructions: [place] Diet Additional Instructions: Drink plenty of fluids start a BRAT ( bananas, rice apples toast) follow up with your doctor as soon as possible return to the ER if symptoms worsen - Post Discharge Activity Work/Back to School Note: Back to Work
[2020-02-02] MEDS ORDERED: ACETAMINOPHEN INJECTION 100 ML IVPB ONE (23:14)
[2020-02-02] MEDS ORDERED: ONDANSETRON 4 MG/2 ML VIAL IVPB ONE (23:48)
[2020-02-02 23:51] LABS: BASO % 0.3 % (0-2.0); EOS % 2.8 % (0-4.5); HEMATOCRIT 32.5 % (32.4-45.2); HEMOGLOBIN 10.8 GM/dL (10.7-15.3); LYMPH % 31.1 % (8-40); MCHC 33.2 g/dl (32.0-36.0); MEAN CELL VOLUME 81.3 fl (80-96); MEAN PLT VOLUME 8.9 fl (7.5-11.1); MONO % 7.7 % (3.8-10.2); NEUT % 58.1 % (42.8-82.8); PLATELET COUNT 302 K/MM3 (134-434); RDW 15.6 % (11.6-15.6); WHITE BLOOD COUNT 7.6 K/mm3 (4.0-10.0)
[2020-02-03 00:56] LABS: URINE APPEARANCE CLEAR; URINE BILIRUBIN NEGATIVE (NEGATIVE); URINE COLOR YELLOW; URINE GLUCOSE (UA) NEGATIVE (NEGATIVE); URINE KETONE NEGATIVE (NEGATIVE); URINE LEUK ESTERASE NEGATIVE (NEGATIVE); URINE NITRITE NEGATIVE (NEGATIVE); URINE PROTEIN NEGATIVE (NEGATIVE); URINE UROBILINOGEN 0.2 mg/dL (0.2-1.0)
[2020-02-03] MEDS ORDERED: FAMOTIDINE 20 MG/50 ML IVPB 20 MG/50 ML MG IVPB ONE ×2 (01:03→01:19)
[2020-02-03 01:08] LABS: BILIRUBIN,TOTAL 0.3 mg/dL (0.2-1); BLOOD UREA NITROGEN 9.5 mg/dL (7-18); CALCIUM 9.3 mg/dL (8.5-10.1); CREATININE 0.8 mg/dL (0.55-1.3); POTASSIUM 3.4 mmol/L (3.5-5.1); TOT PROT 6.8 g/dl (6.4-8.2)
[2020-02-03 02:15] VITALS: BP 148/89; PULSE 72; TEMP 98.4
== END 2020-02-03 02:06 | disposition home or self-care (01) ==
LOC: JER 22:32
PROC: 3E033NZ Introduction of Analgesics, Hypnotics, Sedatives into Peripheral Vein, Percutaneous Approach (ICD-10-PCS; principal; 2020-02-02)
PROC: 3E0337Z Introduction of Electrolytic and Water Balance Substance into Peripheral Vein, Percutaneous Approach (ICD-10-PCS; 2020-02-02)
PROC: 3E033GC Introduction of Other Therapeutic Substance into Peripheral Vein, Percutaneous Approach (ICD-10-PCS; 2020-02-02)
DX: R10.84 Generalized abdominal pain (principal)
CPT/HCPCS: 36415; 80053; 81003; 83690; 84703; 85025; 87086; 99285-25; J0131

== ENCOUNTER 2023-02-14 14:49 | Emergency (ER) | payer OTHER ==
[2023-02-14 14:57] VITALS: TEMP 97.8; BMI 43.0
[2023-02-14] MEDS ORDERED: METOCLOPRAMIDE HCL INJECTION 10 MG/2 ML VIAL IVPUSH ONE (16:32)
[2023-02-14] MEDS ORDERED: ACETAMINOPHEN 1000 MG/100 ML BAG IVPB ONE (16:32)
[2023-02-14] MEDS ORDERED: PENICILLIN V POTASSIUM 500 MG TABLET PO ONE (16:33)
[2023-02-14] MEDS ORDERED: METOCLOPRAMIDE HCL INJECTION 10 MG/2 ML VIAL ONE (16:49)
[2023-02-14] MEDS ORDERED: ACETAMINOPHEN INJECTION 100 ML IVPB ONE (16:50)
[2023-02-14 17:10] LABS: BASO % 0.8 % (0-2.0); EOS % 2.2 % (0-4.5); HEMATOCRIT 41.8 % (32.4-45.2); HEMOGLOBIN 14.4 GM/dL (10.7-15.3); LYMPH % 26.2 % (8-40); MCH 29.1 pg (25.7-33.7); MCHC 34.5 g/dl (32.0-36.0); MEAN CELL VOLUME 84.4 fl (80-96); MEAN PLT VOLUME 9.9 fl (7.5-11.1); MONO % 6.6 % (3.8-10.2); NEUT % 64.2 % (42.8-82.8); PLATELET COUNT 260 10^3/uL (134-434); RBC 4.95 M/mm3 (3.60-5.2); RDW 15.9 % (11.6-15.6); WHITE BLOOD COUNT 10.9 K/mm3 (4.0-10.0)
[2023-02-14 17:12] VITALS: BP 184/84; PULSE 75; RESP 20
[2023-02-14 17:20] LABS: CHLORIDE 98 mmol/L (98-107); SODIUM 132 mmol/L (136-145)
[2023-02-14 17:22] LABS: BLOOD UREA NITROGEN 9.3 mg/dL (7-18); CALCIUM 9.2 mg/dL (8.5-10.1); CO2 27 mmol/L (21-32); GLUCOSE,RANDOM 115 mg/dL (74-106)
[2023-02-14 17:23] LABS: ALBUMIN 3.4 g/dl (3.4-5.0)
[2023-02-14 17:26] LABS: BILIRUBIN,TOTAL 0.7 mg/dL (0.2-1); CREATININE 0.9 mg/dL (0.55-1.3); SGOT/AST 68 U/L (15-37); TOT PROT 8.2 g/dl (6.4-8.2)
[2023-02-14 17:28] LABS: ALK PHOS 77 U/L (45-117)
[2023-02-14 17:33] LABS: ANION GAP 6 MMOL/L (8-16); POTASSIUM 6.2 mmol/L (3.5-5.1); SGPT/ALT 25 U/L (13-61)
[2023-02-14] MEDS ORDERED: LISINOPRIL 20 MG TABLET PO ONE (18:16)
[2023-02-14] MEDS ORDERED: amLODIPine BESYLATE 5 MG TABLET (FP) PO ONE (18:18)
[2023-02-14] MEDS ORDERED: amLODIPine BESYLATE 5 MG TABLET (FP) ONE (18:38)
[2023-02-14 18:54] LABS: POTASSIUM 3.5 mmol/L (3.5-5.1)
[2023-02-14 18:55] LABS: CALCIUM 9.4 mg/dL (8.5-10.1)
[2023-02-14 18:56] LABS: BLOOD UREA NITROGEN 8.9 mg/dL (7-18)
[2023-02-14 18:59] LABS: CREATININE 0.7 mg/dL (0.55-1.3)
== END 2023-02-14 19:36 | disposition home or self-care (01) ==
LOC: JER 14:49
PROC: 3E033NZ Introduction of Analgesics, Hypnotics, Sedatives into Peripheral Vein, Percutaneous Approach (ICD-10-PCS; principal; 2023-02-14)
PROC: 3E033GC Introduction of Other Therapeutic Substance into Peripheral Vein, Percutaneous Approach (ICD-10-PCS; 2023-02-14)
DX: K08.89 Other specified disorders of teeth and supporting structures (principal); R51.9 Headache, unspecified; I10 Essential (primary) hypertension; K06.1 Gingival enlargement
CPT/HCPCS: 36415; 70450-TC; 80048; 80053; 84703; 85025; 93005; 93010; 99285-25

== ENCOUNTER 2023-02-26 05:01 | Day surgery (SDC) | payer OTHER ==
[2023-02-22 09:31] VITALS: BMI 43.0
[2023-02-26] MEDS ORDERED: FENTANYL CITRATE/PF 50 MCG/ML VIAL ONE ×3 (08:37→09:04)
[2023-02-26] MEDS ORDERED: MIDAZOLAM HCL 2 MG/2 ML SINGLE DOSE VIAL ONE (08:38)
[2023-02-26] MEDS ORDERED: SUCCINYLCHOLINE CHLORIDE 200 MG/10 ML SYRINGE ONE (08:38)
[2023-02-26] MEDS ORDERED: PROPOFOL 40 ML ONE (08:38)
[2023-02-26] MEDS ORDERED: ACETAMINOPHEN 325 MG TABLET (FP) PO PRN (08:40)
[2023-02-26] MEDS ORDERED: IBUPROFEN 400 MG TABLET (FP) PO PRN (08:40)
[2023-02-26] MEDS ORDERED: ONDANSETRON 4 MG/2 ML VIAL IVPUSH PRN (08:41)
[2023-02-26] MEDS ORDERED: KETOROLAC TROMETHAMINE 30 MG/1 ML VIAL ONE (08:54)
[2023-02-26] MEDS ORDERED: DEXAMETHASONE SOD PHOSPHATE 4 MG/1 ML VIAL ONE (08:54)
[2023-02-26] MEDS ORDERED: oxyCODONE HCL 5 MG TABLET PO PRN (09:41)
[2023-02-26] MEDS ORDERED: LACTATED RINGERS SOLUTION 1,000 ML IV SCH (09:45)
[2023-02-26 11:09] VITALS: RESP 18
[2023-02-26 13:08] VITALS: TEMP 97.9
[2023-02-26 13:16] VITALS: BP 151/78; PULSE 72
== END 2023-02-26 11:55 | disposition home or self-care (01) ==
LOC: JASU-SURG 05:01
PROVIDERS: ATTEND Obstetrics & Gynecology
PROC: 0UB98ZZ Excision of Uterus, Via Natural or Artificial Opening Endoscopic (ICD-10-PCS; principal; 2023-02-26 08:30)
DX: N92.0 Excessive and frequent menstruation with regular cycle (principal); N84.0 Polyp of corpus uteri
CPT/HCPCS: 81025; 82962; 88305-TC; 94760

== ENCOUNTER 2023-04-21 09:45 | Emergency (ER) | payer OTHER ==
[2023-04-21 10:00] VITALS: RESP 18; BMI 43.0
[2023-04-21] MEDS ORDERED: SODIUM CHLORIDE 1,000 ML IV STA ×2 (10:31→12:54)
[2023-04-21] MEDS ORDERED: ACETAMINOPHEN 1000 MG/100 ML BAG IVPB ONE (10:31)
[2023-04-21] MEDS ORDERED: FAMOTIDINE 20 MG/50 ML IVPB 20 MG/50 ML MG IVPB ONE ×2 (10:32→12:13)
[2023-04-21] MEDS ORDERED: METOCLOPRAMIDE HCL INJECTION 10 MG/2 ML VIAL IVPUSH ONE (10:32)
[2023-04-21] MEDS ORDERED: METOCLOPRAMIDE HCL INJECTION 10 MG/2 ML VIAL ONE (12:12)
[2023-04-21] MEDS ORDERED: ACETAMINOPHEN INJECTION 100 ML IVPB ONE (12:13)
[2023-04-21 12:31] LABS: BASO % 0.9 % (0-2.0); EOS % 2.8 % (0-4.5); HEMATOCRIT 32.5 % (32.4-45.2); HEMOGLOBIN 10.9 GM/dL (10.7-15.3); LYMPH % 12.4 % (8-40); MCH 29.1 pg (25.7-33.7); MCHC 33.7 g/dl (32.0-36.0); MEAN CELL VOLUME 86.4 fl (80-96); MEAN PLT VOLUME 9.3 fl (7.5-11.1); MONO % 6.7 % (3.8-10.2); NEUT % 77.2 % (42.8-82.8); PLATELET COUNT 254 10^3/uL (134-434); RBC 3.76 M/mm3 (3.60-5.2); RDW 14.3 % (11.6-15.6); WHITE BLOOD COUNT 7.7 K/mm3 (4.0-10.0)
[2023-04-21 12:35] LABS: EPI CELLS 19 /uL (0-25.1); HYALINE CASTS 1 /uL (0-3.1); URINE APPEARANCE CLEAR; URINE BACTERIA 227 /uL (0-1359); URINE BILIRUBIN NEGATIVE (NEGATIVE); URINE COLOR YELLOW; URINE GLUCOSE (UA) 1+ (NEGATIVE); URINE KETONE TRACE (NEGATIVE); URINE LEUK ESTERASE NEGATIVE (NEGATIVE); URINE NITRITE NEGATIVE (NEGATIVE); URINE PROTEIN 1+ (NEGATIVE); URINE RBC 15 /uL (0-23.9); URINE WBC 12 /uL (0-25.8)
[2023-04-21 12:36] LABS: HCG,QUALITATIVE URINE Negative
[2023-04-21 12:40] LABS: INR 1.18 (0.83-1.09); PROTHROMBIN TIME (PATIENT) 13.7 SEC (9.7-13.0)
[2023-04-21 12:43] LABS: ACTIVATED PTT 25.2 SECONDS (25.2-36.5)
[2023-04-21 12:51] LABS: POTASSIUM 3.6 mmol/L (3.5-5.1)
[2023-04-21 12:53] LABS: ALBUMIN 3.4 g/dl (3.4-5.0); BLOOD UREA NITROGEN 6.2 mg/dL (7-18); CALCIUM 8.8 mg/dL (8.5-10.1); MAGNESIUM 1.9 mg/dL (1.8-2.4)
[2023-04-21 12:56] LABS: CREATININE 0.8 mg/dL (0.55-1.3)
[2023-04-21 12:58] LABS: BILIRUBIN,TOTAL 0.6 mg/dL (0.2-1); TOT PROT 7.1 g/dl (6.4-8.2)
[2023-04-21 14:50] VITALS: BP 155/82; PULSE 104; TEMP 100.1
== END 2023-04-21 15:28 | disposition home or self-care (01) ==
LOC: JER 09:45
PROC: 3E033GC Introduction of Other Therapeutic Substance into Peripheral Vein, Percutaneous Approach (ICD-10-PCS; principal; 2023-04-21)
PROC: 3E033NZ Introduction of Analgesics, Hypnotics, Sedatives into Peripheral Vein, Percutaneous Approach (ICD-10-PCS; 2023-04-21)
PROC: 3E033GC Introduction of Other Therapeutic Substance into Peripheral Vein, Percutaneous Approach (ICD-10-PCS; 2023-04-21)
PROC: 3E0337Z Introduction of Electrolytic and Water Balance Substance into Peripheral Vein, Percutaneous Approach (ICD-10-PCS; 2023-04-21)
DX: R05.9 Cough, unspecified (principal); R09.81 Nasal congestion; R11.2 Nausea with vomiting, unspecified; M79.10 Myalgia, unspecified site; R50.9 Fever, unspecified; R00.0 Tachycardia, unspecified; E66.9 Obesity, unspecified; J10.1 Influenza due to other identified influenza virus with other respiratory manifestations; Z68.41 Body mass index [BMI] 40.0-44.9, adult; Z20.822 Contact with and (suspected) exposure to COVID-19
CPT/HCPCS: 0241U-QW; 36415; 71046-TC-FY; 80053; 81003; 83735; 84484; 84703; 85025; 85610; 85730; 87086; 93005; 93010; 99285-25